=== PATIENT | female | born 2000 | race African-American/Black ===

== ENCOUNTER 2021-04-29 08:46 | Emergency (ER) | payer OTHER ==
--- OUTSIDE RECORDS SUMMARY | 2021-04-29 08:51 | XMS REPORT | Continuity of Care Document ---
:2000 Author Organization [facility] t Address [address] [place] [address] Care Team Providers Name Role Phone Asked, Pcp Primary Care Physician Unavailable UNKNOWN Attending Clinician Unavailable Jesu Attending Clinician Unavailable Kandice CHACKO Attending Clinician Maritza CHACKO, [place] Attending Clinician Suraj LLANES, J Attending Clinician Unavailable Rosalia STINSON Attending Clinician Unavailable Milad HERRERA, L Attending Clinician Petar GARCIAP Attending Clinician Aravind RUANO Attending Clinician Unavailable Marquita SMALL Attending Clinician Desiree HERRERA, B Attending Clinician 2, [facility] Room Attending Clinician Unavailable Ela Jim MD Attending Clinician Kevin SMALL Attending Clinician Physician, Primary or Family Admitting Clinician Unavailabl e Payers Payer Name Policy Type Policy Number Effective Date Expiration Date [facility] [id number] 2018 CHOICE MEDICAID 00:00:00 Advance Directives Directive Decision Effective Termination Comments Source Date Date Healthcare Agents on N/A Univ ersity FileNameRelationshipHealthcare of [place] Agent Medical RelationshipCommunicationTa[facility] WardAuntHealth Care [phone] (Mobile) Yuliya Hunt [facility] [phone] (Mobile) Problems Condition Condition Condition Status Onset Resolution Last Treating Co mments Source Name Details Category Date Date Treatment Clinician Date Depo-Prove Depo-Prove Disease Active 2020-0 U nivers ra ra 1-09 ity of contracept contracept 00:00: Isael dao praful status praful status 00 [place] , , Disease Active 2018-02 Univers delivered, delivered, 2-29 it y of current current 00:00: [place] hospitaliz hospitaliz 00 [facility] ation ation Branch Single Single Disease Active 2018-02 Univers liveborn liveborn 2-29 ity of infant infant 00:00: [address] Branch Placental Placental Disease Active 2019 Uni vers abruption abruption 2-20 ity of 00:00: [address] Susceptibl Susceptibl Disease Active 2019-0 U nivleyda e to e to 7-18 ity of Varicella Varicella 00:00: [place] s (non-immun (non-immun 00 Me dical e), e), Branch currently currently in first in first trimester trimester Supervisio Supervisio Disease Active 2019-0 U nivleyda n of high n of high 7-17 ity of risk risk 00:00: [place] 00 Medi bernadine in first in first Branch trimester trimester Nausea and Nausea and Disease Active 2019-0 U nivers vomiting vomiting 7-17 ity of in in 00:00: [place] 00 Medi bernadine prior to prior to Branch 22 weeks 22 weeks gestation gestation Abdominal Abdominal Disease Active 2019-0 Uni vers cramping cramping 7-17 ity of complicati complicati 00:00: [place] Medical Bran ch Previous Previous Disease Active 2019-0 Unive rs 7-17 ity of delivery delivery 00:00: [place] affecting affecting 00 Medi bernadine , , Br anch antepartum antepartum History of History of Disease Active 2019-0 U nivers depression depression 7-17 it y of 00:00: [place] 00 [facility] Branch Chlamydia Chlamydia Disease Active Uni vers trachomati trachomati 8-22 it y of s s 00:00: [place] infection infection 00 Medi bernadine of lower of lower Branch genitourin genitourin vandana sites vandana sites Vaginal Vaginal Disease Active Univers discharge discharge - ity of 00:00: [place] 00 Medical [place] Bacterial Bacterial Disease Active Uni vers vaginosis vaginosis - ity of 00:00: [place] 00 [facility] Allergies, Adverse Reactions, Alerts Allergy Allergy Status Severity Reaction(s) Onset Inactive Treating Comm ents Source Name Type Date Date Clinician No Known DA Active U [facility]ie - [place] s 00:00: d [address] [facility] No Known DA Active U [facility] Allergie 07-13 Clear s 00:00: [place] 00 [facility] NO KNOWN Drug Active Univers ALLERGIE Class ity of S [facility] [place] [facility] Social History Social Habit Start Date Stop Date Quantity Comments Source ASSERTION 2018-08-03 [place] of 00:00:00 [facility] [place] [facility] [place] [facility] Alcohol intake 2019-02-25 2019-02-25 Ex-drinker [facility] 00:00:00 00:00:00 (finding) [facility] [place] [facility] Tobacco use and 2019-02-25 2019-02-25 Never used Universit y of exposure 00:00:00 00:00:00 [facility] [place] [facility] Tobacco Comment 2018-09-02 2018-09-02 Marijuana use Univer sity of 00:00:00 00:00:00 [facility] [place] [facility] History of 2018-08-29 Smoker University of tobacco use 00:00:00 [facility] [place] [facility] Alcohol Comment 2018-03-26 2018-03-[address] 00:00:00 00:00:00 Hospital Smoking Status Start Date Stop Date Source Former smoker 2019-02-25 00:00:00 2019-02-25 00:00:00 [facility] smoker [facility] Medications Ordered Filled Start Stop Current Ordering Indication Dosage Frequency Signature Comments Components Source Medication Medication Date Date Medication? Clinician (SIG) Name Name doxycycline 2020- No 100mg Q.5D Take 1 Me thodi (VIBRAMYCIN 7-10 07-[address] ) 100 MG 00:00: 04:59 (100 mg Hospi ta capsule 00 :00 total) by l mouth 2 (two) times a day for 7 days. 2018-02 Yes [id number] 1{tbl} Take 1 Univers vitamin 2-29 tablet by ity of w/FA tablet 00:00: mouth [place] 00 daily. Medical Branch ferrous 2018-02 Yes [id number] 325mg Take 1 Un marshal sulfate 325 2-29 tablet by ity of mg (65 mg 00:00: mouth 2 [place] iron) 00 (two) Medical tablet times Branch daily. SERTraline 2018-02 Yes [id number] 50mg Take 1 Univers 50 mg 2-29 tablet by ity of tablet 00:00: mouth [place] 00 daily. Medical Branch 2018-02 Yes [id number] 1{tbl} Take 1 Univers vitamin 2-29 tablet by ity of w/FA tablet 00:00: mouth [place] 00 daily. Medical Branch ferrous 2018-02 Yes [id number] 325mg Take 1 Un marshal sulfate 325 2-29 tablet by ity of mg (65 mg 00:00: mouth 2 [place] iron) 00 (two) Medical tablet times Branch daily. SERTraline 2018-02 Yes [id number] 50mg Take 1 Univers 50 mg 2-29 tablet by ity of tablet 00:00: mouth [place] 00 daily. Medical Branch 2018-02 Yes [id number] 1{tbl} Take 1 Univers vitamin 2-29 tablet by ity of w/FA tablet 00:00: mouth [place] 00 daily. Medical Branch ferrous 2018-02 Yes [id number] 325mg Take 1 Un marshal sulfate 325 2-29 tablet by ity of mg (65 mg 00:00: mouth 2 [place] iron) 00 (two) Medical tablet times Branch daily. SERTraline 2018-02 Yes [id number] 50mg Take 1 Univers 50 mg 2-29 tablet by ity of tablet 00:00: mouth [place] 00 daily. Medical Branch Yes [id number] 1{packe Take 1 Univers vit 8-21 t} Packet by ity of 33-iron-fol 00:00: mouth [place] ic-dha 00 daily. Medical (SELECT-OB Branch + DHA) 29 mg iron-1 mg -250 mg combo pack Yes [id number] 1{packe Take 1 Univers vit 8-21 t} Packet by ity of 33-iron-fol 00:00: mouth [place] ic-dha 00 daily. Medical (SELECT-OB Branch + DHA) 29 mg iron-1 mg -250 mg combo pack Yes [id number] 1{packe Take 1 Univers vit 7-17 t} Packet by ity of 33-iron-fol 00:00: mouth [place] ic-dha 00 daily. Medical (SELECT-OB Branch + DHA) 29 mg iron-1 mg -250 mg combo pack Yes [id number] 1{packe Take 1 Univers vit 7-17 t} Packet by ity of 33-iron-fol 00:00: mouth [place] ic-dha 00 daily. Medical (SELECT-OB Branch + DHA) 29 mg iron-1 mg -250 mg combo pack Yes [id number] 1{packe Take 1 Univers vit 7-17 t} Packet by ity of 33-iron-fol 00:00: mouth [place] ic-dha 00 daily. Medical (SELECT-OB Branch + DHA) 29 mg iron-1 mg -250 mg combo pack Yes [id number] 1{packe Take 1 Univers vit 7-17 t} Packet by ity of 33-iron-fol 00:00: mouth [place] ic-dha 00 daily. Medical (SELECT-OB Branch + DHA) 29 mg iron-1 mg -250 mg combo pack Yes [id number] 1{packe Take 1 Univers vit 7-17 t} Packet by ity of 33-iron-fol 00:00: mouth [place] ic-dha 00 daily. Medical (SELECT-OB Branch + DHA) 29 mg iron-1 mg -250 mg combo pack 2019- No [id number] 1{packe Take 1 Univers vit 7-17 08-21 t} Packet by ity of 33-iron-fol 00:00: 00:[place] :00 daily. Medical (SELECT-OB Branch + DHA) 29 mg iron-1 mg -250 mg combo pack proMETHazin Yes [id number] 25mg Take 1 Univers e 25 mg 7-15 tablet by ity of tablet 00:00: mouth [place] 00 every 6 Medical (six) Branch hours as needed for Nausea and Vomiting (N/V). proMETHazin Yes [id number] 25mg Take 1 Univers e 25 mg 7-15 tablet by ity of tablet 00:00: mouth [place] 00 every 6 Medical (six) Branch hours as needed for Nausea and Vomiting (N/V). proMETHazin Yes [id number] 25mg Take 1 Univers e 25 mg 7-15 tablet by ity of tablet 00:00: mouth [place] 00 every 6 Medical (six) Branch hours as needed for Nausea and Vomiting (N/V). proMETHazin 2018- Yes [id number] 25mg Take 1 Univers e 25 mg 7-15 tablet by ity of tablet 00:00: mouth [place] 00 every 6 Medical (six) Branch hours as needed for Nausea and Vomiting (N/V). proMETHazin Yes [id number] 25mg Take 1 Univers e 25 mg 7-15 tablet by ity of tablet 00:00: mouth [place] 00 every 6 Medical (six) Branch hours as needed for Nausea and Vomiting (N/V). proMETHazin Yes [id number] 25mg Take 1 Univers e 25 mg 7-15 tablet by ity of tablet 00:00: mouth [place] 00 every 6 Medical (six) Branch hours as needed for Nausea and Vomiting (N/V). proMETHazin Yes [id number] 25mg Take 1 Univers e 25 mg 7-15 tablet by ity of tablet 00:00: mouth [place] 00 every 6 Medical (six) Branch hours as needed for Nausea and Vomiting (N/V). azithromyci 2017- Yes [id number] 1000mg Take 2 Univers n 500 mg 8-30 tablets by ity o f tablet 00:00: mouth [place] 00 daily. Medical Branch azithromyci 2017-0 Yes [id number] 1000mg Take 2 Univers n 500 mg 8-30 tablets by ity o f tablet 00:00: mouth [place] 00 daily. Medical Branch azithromyci 2017-0 Yes [id number] 1000mg Take 2 Univers n 500 mg 8-30 tablets by ity o f tablet 00:00: mouth [place] 00 daily. Medical Branch azithromyci 2017- Yes [id number] 1000mg Take 2 Univers n 500 mg 8-30 tablets by ity o f tablet 00:00: mouth [place] 00 daily. Medical Branch azithromyci Yes [id number] 1000mg Take 2 Univers n 500 mg 8-30 tablets by ity o f tablet 00:00: mouth [place] 00 daily. Medical Branch azithromyci 2018-0 Yes [id number] 1000mg Take 2 Univers n 500 mg 8-30 tablets by ity o f tablet 00:00: mouth [place] 00 daily. Medical Branch azithromyci 2018-0 Yes [id number] 1000mg Take 2 Univers n 500 mg 8-30 tablets by ity o f tablet 00:00: mouth [place] 00 daily. [facility] Immunizations Ordered Immunization Filled Immunization Date Status Commen ts Source Name Name HPV9 2019-02-14 Completed University of 00:00:00 [facility] [place] [facility] HPV9 2019-02-14 Completed University of 00:00:00 [facility] [place] [facility] HPV9 2019-02-14 Completed University of 00:00:00 [facility] [place] [facility] TDAP (ADACEL) VACCINE 2019-02-08 Completed Uni versity of 00:00:00 [facility] [place] [facility] Influenza Virus 2019-02-08 Completed Universit y of Vaccine Quad .5 mL IM 00:00:00 [place] as Medical 6+ MO Branch TDAP (ADACEL) VACCINE 2019-02-08 Completed Uni versity of 00:00:00 [facility] [place] [facility] Influenza Virus 2019-02-08 Completed Universit y of Vaccine Quad .5 mL IM 00:00:00 [place] Medical 6+ MO Branch TDAP (ADACEL) VACCINE 2019-02-08 Completed Uni versity of 00:00:00 [facility] [place] [facility] Influenza Virus 2019-02-08 Completed Universit y of Vaccine Quad .5 mL IM 00:00:00 [place] as Medical 6+ MO Branch HPV9 2015-06-15 Completed University of 00:00:00 [facility] [place] [facility] HPV9 2015-06-15 Completed University of 00:00:00 [facility] [place] [facility] HPV9 2015-06-15 Completed University of 00:00:00 [facility] [place] [facility] HPV9 2015-06-15 Completed University of 00:00:00 [facility] [place] [facility] HPV9 2015-06-15 Completed University of 00:00:00 [facility] [place] [facility] HPV9 2015-06-15 Completed University of 00:00:00 [facility] [place] [facility] HPV9 2015-06-15 Completed University of 00:00:00 [facility] [place] [facility] HPV9 2015-06-15 Completed University of 00:00:00 [facility] [place] [facility] HPV9 2015-06-15 Completed University of 00:00:00 [facility] [place] [facility] HPV9 2015-06-15 Completed University of 00:00:00 [facility] [place] [facility] Meningococcal 2015-03-15 Completed University of Polysaccharide 00:00:00 [place] Medi bernadine (groups A, C, Y and Branc h W-135) conjugate vaccine (MCV4P) Influenza Virus 2015-03-15 Completed Universit y of Vaccine Quad IM 3+ 00:00:00 [facility] HPV9 2015-03-15 Completed University of 00:00:00 [facility] [place] [facility] Meningococcal 2015-03-15 Completed University of Polysaccharide 00:00:00 [place] Medi bernadine (groups A, C, Y and Branc h W-135) conjugate vaccine (MCV4P) Influenza Virus 2015-03-15 Completed Universit y of Vaccine Quad IM 3+ 00:00:00 [facility] HPV9 2015-03-15 Completed University of 00:00:00 [facility] [place] [facility] Meningococcal 2015-03-15 Completed University of Polysaccharide 00:00:00 [place] Medi bernadine (groups A, C, Y and Branc h W-135) conjugate vaccine (MCV4P) Influenza Virus 2015-03-15 Completed Universit y of Vaccine Quad IM 3+ 00:00:00 [facility] HPV9 2015-03-15 Completed University of 00:00:00 [facility] [place] [facility] Meningococcal 2015-03-15 Completed University of Polysaccharide 00:00:00 [place] Medi bernadine (groups A, C, Y and Branc h W-135) conjugate vaccine (MCV4P) Influenza Virus 2015-03-15 Completed Universit y of Vaccine Quad IM 3+ 00:00:00 [facility] HPV9 2015-03-15 Completed University of 00:00:00 [facility] [place] [facility] Meningococcal 2015-03-15 Completed University of Polysaccharide 00:00:00 [place] Medi bernadine (groups A, C, Y and Branc h W-135) conjugate vaccine (MCV4P) Influenza Virus 2015-03-15 Completed Universit y of Vaccine Quad IM 3+ 00:00:00 [facility] HPV9 2015-03-15 Completed University of 00:00:00 [facility] [place] [facility] Meningococcal 2015-03-15 Completed University of Polysaccharide 00:00:00 [place] Medi bernadine (groups A, C, Y and Branc h W-135) conjugate vaccine (MCV4P) Influenza Virus 2015-03-15 Completed Universit y of Vaccine Quad IM 3+ 00:00:00 [facility] Branch HPV9 2015-03-15 Completed University of 00:00:00 [facility] [place] [facility] Meningococcal 2015-03-15 Completed University of Polysaccharide 00:00:00 [place] Medi bernadine (groups A, C, Y and Branc h W-135) conjugate vaccine (MCV4P) Influenza Virus 2015-03-15 Completed Universit y of Vaccine Quad IM 3+ 00:00:00 [facility] Branch HPV9 2015-03-15 Completed University of 00:00:00 [facility] [place] [facility] Meningococcal 2015-03-15 Completed University of Polysaccharide 00:00:00 [place] Medi bernadine (groups A, C, Y and Branc h W-135) conjugate vaccine (MCV4P) Influenza Virus 2015-03-15 Completed Universit y of Vaccine Quad IM 3+ 00:00:00 [facility] Branch HPV9 2015-03-15 Completed University of 00:00:00 [facility] [place] [facility] Meningococcal 2015-03-15 Completed University of Polysaccharide 00:00:00 [place] Medi bernadine (groups A, C, Y and Branc h W-135) conjugate vaccine (MCV4P) Influenza Virus 2015-03-15 Completed Universit y of Vaccine Quad IM 3+ 00:00:00 [facility] Branch HPV9 2015-03-15 Completed University of 00:00:00 [facility] [place] [facility] Meningococcal 2015-03-15 Completed University of Polysaccharide 00:00:00 [place] Medi bernadine (groups A, C, Y and Branc h W-135) conjugate vaccine (MCV4P) Influenza Virus 2015-03-15 Completed Universit y of Vaccine Quad IM 3+ 00:00:00 [facility] Branch HPV9 2015-03-15 Completed University of 00:00:00 [facility] [place] [facility] HPV 2014-08-18 Completed University of 00:00:00 [facility] Branch HPV 2014-08-18 Completed University of 00:00:00 [facility] Branch HPV 2014-08-18 Completed University of 00:00:00 [facility] Branch HPV 2014-08-18 Completed University of 00:00:00 [facility] Branch HPV 2014-08-18 Completed University of 00:00:00 [facility] Branch HPV 2014-08-18 Completed University of 00:00:00 [facility] Branch HPV 2014-08-18 Completed University of 00:00:00 [facility] Branch HPV 2014-08-18 Completed University of 00:00:00 [facility] [place] [facility] HPV 2014-08-18 Completed University of 00:00:00 [facility] [place] [facility] HPV 2014-08-18 Completed University of 00:00:00 [facility] [place] [facility] Influenza Virus 2012-12-23 Completed Universit y of Vaccine 00:00:00 [facility] [place] [facility] Influenza Virus 2012-12-23 Completed Universit y of Vaccine 00:00:00 [facility] [place] [facility] Influenza Virus 2012-12-23 Completed Universit y of Vaccine 00:00:00 [facility] [place] [facility] Influenza Virus 2012-12-23 Completed Universit y of Vaccine 00:00:00 [facility] [place] [facility] Influenza Virus 2012-12-23 Completed Universit y of Vaccine 00:00:00 [facility] [place] [facility] Influenza Virus 2012-12-23 Completed Universit y of Vaccine 00:00:00 [facility] [place] [facility] Influenza Virus 2012-12-23 Completed Universit y of Vaccine 00:00:00 [facility] [place] [facility] Influenza Virus 2012-12-23 Completed Universit y of Vaccine 00:00:00 [facility] [place] [facility] Influenza Virus 2012-12-23 Completed Universit y of Vaccine 00:00:00 [facility] [place] [facility] Influenza Virus 2012-12-23 Completed Universit y of Vaccine 00:00:00 [facility] [place] [facility] Influenza Virus 2012-03-02 Completed Universit y of Vaccine 00:00:00 [facility] [place] [facility] Influenza Virus 2012-03-02 Completed Universit y of Vaccine 00:00:00 [facility] [place] [facility] Influenza Virus 2012-03-02 Completed Universit y of Vaccine 00:00:00 [facility] [place] [facility] Influenza Virus 2012-03-02 Completed Universit y of Vaccine 00:00:00 [facility] [place] [facility] Influenza Virus 2012-03-02 Completed Universit y of Vaccine 00:00:00 [facility] [place] [facility] Influenza Virus 2012-03-02 Completed Universit y of Vaccine 00:00:00 [facility] [place] [facility] Influenza Virus 2012-03-02 Completed Universit y of Vaccine 00:00:00 [facility] [place] [facility] Influenza Virus 2012-03-02 Completed Universit y of Vaccine 00:00:00 [facility] [place] [facility] Influenza Virus 2012-03-02 Completed Universit y of Vaccine 00:00:00 [facility] [place] [facility] Influenza Virus 2012-03-02 Completed Universit y of Vaccine 00:00:00 [facility] [place] [facility] Tdap 2010-05-04 Completed University of 00:00:00 [facility] [place] [facility] Meningococcal Vaccine 2010-05-04 Completed Uni versity of 00:00:00 [place] [facility] Tdap 2010-05-04 Completed University of 00:00:00 [place] [facility] Meningococcal Vaccine 2010-05-04 Completed Uni versity of 00:00:00 [place] [facility] Tdap 2010-05-04 Completed University of 00:00:00 [place] [facility] Meningococcal Vaccine 2010-05-04 Completed Uni versity of 00:00:00 [place] [facility] Tdap 2010-05-04 Completed University of 00:00:00 [place] [facility] Meningococcal Vaccine 2010-05-04 Completed Uni versity of 00:00:00 [place] [facility] Tdap 2010-05-04 Completed University of 00:00:00 [place] [facility] Meningococcal Vaccine 2010-05-04 Completed Uni versity of 00:00:00 [place] [facility] Tdap 2010-05-04 Completed University of 00:00:00 [place] [facility] Meningococcal Vaccine 2010-05-04 Completed Uni versity of 00:00:00 [place] [facility] Tdap 2010-05-04 Completed University of 00:00:00 [place] [facility] Meningococcal Vaccine 2010-05-04 Completed Uni versity of 00:00:00 [place] [facility] TDAP 2010-05-04 Completed University of 00:00:00 [place] [facility] Meningococcal Vaccine 2010-05-04 Completed Uni versity of 00:00:00 [place] [facility] Tdap 2010-05-04 Completed University of 00:00:00 [place] [facility] Meningococcal Vaccine 2010-05-04 Completed Uni versity of 00:00:00 [place] [facility] Tdap 2010-05-04 Completed University of 00:00:00 [place] [facility] Meningococcal Vaccine 2010-05-04 Completed Uni versity of 00:00:00 [facility] Branch H1n1 Vaccine 2009-03-20 Completed University o f 00:00:00 [place] [facility] H1n1 Vaccine 2009-03-20 Completed University o f 00:00:00 [place] [facility] H1n1 Vaccine 2009-03-20 Completed University o f 00:00:00 [place] [facility] H1n1 Vaccine 2009-03-20 Completed University o f 00:00:00 [place] [facility] H1n1 Vaccine 2009-03-20 Completed University o f 00:00:00 [place] [facility] H1n1 Vaccine 2009-03-20 Completed University o f 00:00:00 [place] [facility] H1n1 Vaccine 2009-03-20 Completed University o f 00:00:00 [place] [facility] H1n1 Vaccine 2009-03-20 Completed University o f 00:00:00 [facility] [place] [facility] H1n1 Vaccine 2009-03-20 Completed University o f 00:00:00 [facility] [place] [facility] H1n1 Vaccine 2009-03-20 Completed University o f 00:00:00 [facility] [place] [facility] Influenza Virus 2009-03-17 Completed Universit y of Vaccine 00:00:00 [facility] [place] [facility] Varicella 2009-03-17 Completed University of (varivax)(chicken 00:00:00 [place] M edical pox) Branch Influenza Virus 2009-03-17 Completed Universit y of Vaccine 00:00:00 [facility] [place] [facility] Varicella 2009-03-17 Completed University of (varivax)(chicken 00:00:00 [place] M edical pox) Branch Influenza Virus 2009-03-17 Completed Universit y of Vaccine 00:00:00 [facility] [place] [facility] Varicella 2009-03-17 Completed University of (varivax)(chicken 00:00:00 [place] M edical pox) Branch Influenza Virus 2009-03-17 Completed Universit y of Vaccine 00:00:00 [facility] [place] [facility] Varicella 2009-03-17 Completed University of (varivax)(chicken 00:00:00 [place] M edical pox) Branch Influenza Virus 2009-03-17 Completed Universit y of Vaccine 00:00:00 [facility] [place] [facility] Varicella 2009-03-17 Completed University of (varivax)(chicken 00:00:00 [place] M edical pox) Branch Influenza Virus 2009-03-17 Completed Universit y of Vaccine 00:00:00 [facility] [place] [facility] Varicella 2009-03-17 Completed University of (varivax)(chicken 00:00:00 [place] M edical pox) Branch Influenza Virus 2009-03-17 Completed Universit y of Vaccine 00:00:00 [facility] [place] [facility] Varicella 2009-03-17 Completed University of (varivax)(chicken 00:00:00 [place] M edical pox) Branch Influenza Virus 2009-03-17 Completed Universit y of Vaccine 00:00:00 [facility] [place] [facility] Influenza Virus 2009-03-17 Completed Universit y of Vaccine 00:00:00 [facility] [place] [facility] Varicella 2009-03-17 Completed University of (varivax)(chicken 00:00:00 [place] M edical pox) Branch Varicella 2009-03-17 Completed University of (varivax)(chicken 00:00:00 [place] M edical pox) Branch Influenza Virus 2009-03-17 Completed Universit y of Vaccine 00:00:00 [facility] [place] [facility] Varicella 2009-03-17 Completed University of (varivax)(chicken 00:00:00 [facility] edical pox) [place] Influenza Virus 2005-01-08 Completed Universit y of Vaccine 00:00:00 [facility] [place] [facility] Influenza Virus 2005-01-08 Completed Universit y of Vaccine 00:00:00 [facility] [place] [facility] Influenza Virus 2005-01-08 Completed Universit y of Vaccine 00:00:00 [facility] [place] [facility] [facility] Influenza Virus 2005-01-08 Completed [facility] Vaccine 00:00:00 [facility] Influenza Virus 2005-01-08 Completed [facility] Vaccine 00:00:00 [facility] Influenza Virus 2005-01-08 Completed [facility] Vaccine 00:00:00 [facility] Influenza Virus 2005-01-08 Completed [facility] Vaccine 00:00:00 [facility] Influenza Virus 2005-01-08 Completed [facility] Vaccine 00:00:00 [facility] Influenza Virus 2005-01-08 Completed [facility] Vaccine 00:00:00 [facility] Influenza Virus 2005-01-08 Completed [facility] Vaccine 00:00:00 [facility] DTAP 2002-12-30 Completed [facility] 00:00:00 [facility] Influenza Virus 2002-12-30 Completed [facility] Vaccine 00:00:00 [facility] MMR 2002-12-30 Completed [facility] 00:00:00 [facility] Polio (IPV/OPV) 2002-12-30 Completed [facility] 00:00:00 [facility] DTAP 2002-12-30 Completed [facility] 00:00:00 [facility] Influenza Virus 2002-12-30 Completed [facility] Vaccine 00:00:00 [facility] MMR 2002-12-30 Completed [facility] 00:00:00 [facility] Polio (IPV/OPV) 2002-12-30 Completed [facility] 00:00:00 [facility] DTAP 2002-12-30 Completed [facility] 00:00:00 [facility] Influenza Virus 2002-12-30 Completed [facility] Vaccine 00:00:00 [facility] MMR 2002-12-30 Completed [facility] 00:00:00 [facility] Polio (IPV/OPV) 2002-12-30 Completed [facility] 00:00:00 [facility] DTAP 2002-12-30 Completed [facility] 00:00:00 [facility] Influenza Virus 2002-12-30 Completed [facility] Vaccine 00:00:00 [facility] MMR 2002-12-30 Completed [facility] 00:00:00 [facility] Polio (IPV/OPV) 2002-12-30 Completed [facility] 00:00:00 [facility] DTAP 2002-12-30 Completed [facility] 00:00:00 [facility] Influenza Virus 2002-12-30 Completed [facility] Vaccine 00:00:00 [facility] MMR 2002-12-30 Completed [facility] 00:00:00 [facility] Polio (IPV/OPV) 2002-12-30 Completed [facility] 00:00:00 [facility] DTAP 2002-12-30 Completed [facility] 00:00:00 [facility] Influenza Virus 2002-12-30 Completed [facility] Vaccine 00:00:00 [facility] MMR 2002-12-30 Completed [facility] 00:00:00 [facility] Polio (IPV/OPV) 2002-12-30 Completed [facility] 00:00:00 [facility] DTAP 2002-12-30 Completed [facility] 00:00:00 [facility] DTAP 2002-12-30 Completed [facility] 00:00:00 [facility] Influenza Virus 2002-12-30 Completed [facility] Vaccine 00:00:00 [facility] MMR 2002-12-30 Completed [facility] 00:00:00 [facility] Polio (IPV/OPV) 2002-12-30 Completed [facility] 00:00:00 [facility] Influenza Virus 2002-12-30 Completed [facility] Vaccine 00:00:00 [facility] MMR 2002-12-30 Completed [facility] 00:00:00 [facility] Polio (IPV/OPV) 2002-12-30 Completed [facility] 00:00:00 [facility] DTAP 2002-12-30 Completed [facility] 00:00:00 [facility] Influenza Virus 2002-12-30 Completed [facility] Vaccine 00:00:00 [facility] MMR 2002-12-30 Completed [facility] 00:00:00 [facility] Polio (IPV/OPV) 2002-12-30 Completed [facility] 00:00:00 [facility] DTAP 2002-12-30 Completed [facility] 00:00:00 [facility] Influenza Virus 2002-12-30 Completed [facility] Vaccine 00:00:00 [facility] MMR 2002-12-30 Completed [facility] 00:00:00 [facility] Polio (IPV/OPV) 2002-12-30 Completed [facility] 00:00:00 [facility] HEPATITIS A 2001-12-03 Completed [facility] 00:00:00 [facility] HEPATITIS A 2001-12-03 Completed [facility] 00:00:00 [facility] HEPATITIS A 2001-12-03 Completed [facility] 00:00:00 [facility] HEPATITIS A 2001-12-03 Completed [facility] 00:00:00 [facility] HEPATITIS A 2001-12-03 Completed [facility] 00:00:00 [facility] HEPATITIS A 2001-12-03 Completed [facility] 00:00:00 [facility] HEPATITIS A 2001-12-03 Completed [facility] 00:00:00 [facility] HEPATITIS A 2001-12-03 Completed [facility] 00:00:00 [facility] HEPATITIS A 2001-12-03 Completed [facility] 00:00:00 [facility] HEPATITIS A 2001-12-03 Completed [facility] 00:00:00 [facility] HEPATITIS A 2000-12-15 Completed [facility] 00:00:00 [facility] Hep B, Adol or Pedi 2000-12-15 Completed [facility] of Dosage 00:00:00 [facility] HEPATITIS A 2000-12-15 Completed [facility] 00:00:00 [facility] Hep B, Adol or Pedi 2000-12-15 Completed [facility] of Dosage 00:00:00 [facility] HEPATITIS A 2000-12-15 Completed [facility] 00:00:00 [facility] Hep B, Adol or Pedi 2000-12-15 Completed [facility] of Dosage 00:00:00 [facility] HEPATITIS A 2000-12-15 Completed [facility] 00:00:00 [facility] Hep B, Adol or Pedi 2000-12-15 Completed [facility] of Dosage 00:00:00 [facility] HEPATITIS A 2000-12-15 Completed [facility] 00:00:00 [facility] Hep B, Adol or Pedi 2000-12-15 Completed [facility] of Dosage 00:00:00 [facility] HEPATITIS A 2000-12-15 Completed [facility] 00:00:00 [facility] Hep B, Adol or Pedi 2000-12-15 Completed [facility] of Dosage 00:00:00 [facility] HEPATITIS A 2000-12-15 Completed [facility] 00:00:00 [facility] Hep B, Adol or Pedi 2000-12-15 Completed [facility] of Dosage 00:00:00 [facility] HEPATITIS A 2000-12-15 Completed [facility] 00:00:00 [facility] Hep B, Adol or Pedi 2000-12-15 Completed [facility] of Dosage 00:00:00 [facility] HEPATITIS A 2000-12-15 Completed [facility] 00:00:00 [facility] Hep B, Adol or Pedi 2000-12-15 Completed [facility] of Dosage 00:00:00 [facility] HEPATITIS A 2000-12-15 Completed [facility] 00:00:00 [facility] Hep B, Adol or Pedi 2000-12-15 Completed [facility] of Dosage 00:00:00 [facility] Hep B, Adol or Pedi 2000-05-29 Completed [facility] rs[facility] of Dosage 00:00:00 [facility] Pneumococcal 7 2000-05-29 Completed [facility] of Conjugate, PCV7 00:00:00 [facility] DTAP 2000-05-29 Completed [facility] 00:00:00 [facility] Hep B, Adol or Pedi 2000-05-29 Completed [facility] rs[facility] of Dosage 00:00:00 [facility] Pneumococcal 7 2000-05-29 Completed [facility] Conjugate, PCV7 00:00:00 [facility] DTAP 2000-05-29 Completed [facility] 00:00:00 [facility] Hep B, Adol or Pedi 2000-05-29 Completed [facility] rs[facility] of Dosage 00:00:00 [facility] Pneumococcal 7 2000-05-29 Completed [facility] Conjugate, PCV7 00:00:00 [facility] (Pre[facility]ar[facility] DTAP 2000-05-29 Completed [facility] 00:00:00 [facility] Hep B, Adol or Pedi 2000-05-29 Completed [facility] rs[facility] of Dosage 00:00:00 [facility] Hep B, Adol or Pedi 2000-05-29 Completed [facility] rs[facility] of Dosage 00:00:00 [facility] Pneumococcal 7 2000-05-29 Completed [facility] Conjugate, PCV7 00:00:00 [facility] DTAP 2000-05-29 Completed [facility] 00:00:00 [facility] Pneumococcal 7 2000-05-29 Completed [facility] Conjugate, PCV7 00:00:00 [facility]ar[facility] Hep B, Adol or Pedi 2000-05-29 Completed [facility] rs[facility] of Dosage 00:00:00 [facility] Pneumococcal 7 2000-05-29 Completed [facility] Conjugate, PCV7 00:00:00 [facility] DTAP 2000-05-29 Completed [facility] 00:00:00 [facility] DTAP 2000-05-29 Completed [facility] 00:00:00 [facility] Hep B, Adol or Pedi 2000-05-29 Completed [facility] rs[facility] of Dosage 00:00:00 [facility] Pneumococcal 7 2000-05-29 Completed [facility] Conjugate, PCV7 00:00:00 [facility]Pre[facility]ar[facility] DTAP 2000-05-29 Completed [facility] 00:00:00 [facility] Hep B, Adol or Pedi 2000-05-29 Completed [facility] rs[facility] of Dosage 00:00:00 [facility] Pneumococcal 7 2000-05-29 Completed [facility] Conjugate, PCV7 00:00:00 [facility]ar[facility] DTAP 2000-05-29 Completed [facility] 00:00:00 [facility] Hep B, Adol or Pedi 2000-05-29 Completed [facility]ive rs[facility] of Dosage 00:00:00 [facility] Pneumococcal 7 2000-05-29 Completed [facility] Conjugate, PCV7 00:00:00 [facility]ar[facility] DTAP 2000-05-29 Completed [facility] 00:00:00 [facility] Hep B, Adol or Pedi 2000-05-29 Completed [facility] rs[facility] of Dosage 00:00:00 [facility] Pneumococcal 7 2000-05-29 Completed [facility] Conjugate, PCV7 00:00:00 [facility]ar[facility] DTAP 2000-05-29 Completed [facility] 00:00:00 [facility] MMR 2000-04-08 Completed [facility] 00:00:00 [facility] Pneumococcal 7 2000-04-08 Completed [facility] Conjugate, PCV7 00:00:00 [facility]ar[facility] Varicella 2000-04-08 Completed [facility] (varivax)(chicken 00:00:00 [facility] pox) [facility] HIB 4 Dose Schedule 2000-04-08 Completed [facility]ive rsity of 00:00:00 [facility] MMR 2000-04-08 Completed [facility] 00:00:00 [facility] Pneumococcal 7 2000-04-08 Completed [facility] Conjugate, PCV7 00:00:00 [facility]Pre[facility]ar[facility] Varicella 2000-04-08 Completed [facility] (varivax)(chicken 00:00:00 [facility] pox) [facility] HIB 4 Dose Schedule 2000-04-08 Completed [facility] rs[facility] of 00:00:00 [facility] MMR 2000-04-08 Completed [facility] 00:00:00 [facility] Pneumococcal 7 2000-04-08 Completed [facility] Conjugate, PCV7 00:00:00 [facility]Pre[facility]ar[facility] Varicella 2000-04-08 Completed [facility] (varivax)(chicken 00:00:00 [facility] pox) [facility] HIB 4 Dose Schedule 2000-04-08 Completed [facility] rsity of 00:00:00 [facility] MMR 2000-04-08 Completed [facility] 00:00:00 [facility] MMR 2000-04-08 Completed [facility] 00:00:00 [facility] Pneumococcal 7 2000-04-08 Completed [facility] Conjugate, PCV7 00:00:00 [facility]ar[facility] Varicella 2000-04-08 Completed [facility] (varivax)(chicken 00:00:00 [facility] pox) [facility] Pneumococcal 7 2000-04-08 Completed [facility] Conjugate, PCV7 00:00:00 [facility] (Prevnar7) [facility] HIB 4 Dose Schedule 2000-04-08 Completed [facility] rsity of 00:00:00 [facility] Varicella 2000-04-08 Completed [facility] (varivax)(chicken 00:00:00 [facility] pox) [facility] MMR 2000-04-08 Completed [facility] 00:00:00 [facility] Pneumococcal 7 2000-04-08 Completed [facility] Conjugate, PCV7 00:00:00 [facility]ar[facility] Varicella 2000-04-08 Completed [facility] (varivax)(chicken 00:00:00 [facility] pox) [facility] HIB 4 Dose Schedule 2000-04-08 Completed [facility] rsity of 00:00:00 [facility] MMR 2000-04-08 Completed [facility] 00:00:00 [facility] Pneumococcal 7 2000-04-08 Completed [facility] Conjugate, PCV7 00:00:00 [facility]ar[facility] Varicella 2000-04-08 Completed [facility] (varivax)(chicken 00:00:00 [facility] pox) [facility] HIB 4 Dose Schedule 2000-04-08 Completed [facility] rs[facility] of 00:00:00 [facility] HIB 4 Dose Schedule 2000-04-08 Completed [facility] rsity of 00:00:00 [facility] MMR 2000-04-08 Completed [facility] 00:00:00 [facility] Pneumococcal 7 2000-04-08 Completed [facility] Conjugate, PCV7 00:00:00 [facility]ar[facility] Varicella 2000-04-08 Completed [facility] (varivax)(chicken 00:00:00 [facility] edical pox) Branch HIB 4 Dose Schedule 2000-04-08 Completed [facility]ive rsity of 00:00:00 [facility] MMR 2000-04-08 Completed [facility] 00:00:00 [facility] Pneumococcal 7 2000-04-08 Completed [facility] Conjugate, PCV7 00:00:00 [facility]ar[facility] Varicella 2000-04-08 Completed [facility] (varivax)(chicken 00:00:00 [facility] edical pox) Branch HIB 4 Dose Schedule 2000-04-08 Completed [facility] rsity of 00:00:00 [facility] MMR 2000-04-08 Completed [facility] 00:00:00 [facility] Pneumococcal 7 2000-04-08 Completed [facility] Conjugate, PCV7 00:00:00 [facility]ar[facility] Varicella 2000-04-08 Completed [facility] (varivax)(chicken 00:00:00 [facility] pox) [facility] HIB 4 Dose Schedule 2000-04-08 Completed [facility] rsity of 00:00:00 [facility] Hep B, Adol or Pedi 1999-06-26 Completed [facility]ive rsity of Dosage 00:00:00 [facility] DTAP 1999-06-26 Completed [facility] 00:00:00 [facility] HIB 4 Dose Schedule 1999-06-26 Completed [facility]ive rsity of 00:00:00 [facility] Polio (IPV/OPV) 1999-06-26 Completed [facility] 00:00:00 [facility] Hep B, Adol or Pedi 1999-06-26 Completed [facility]ive rsity of Dosage 00:00:00 [facility] DTAP 1999-06-26 Completed [facility] 00:00:00 [facility] HIB 4 Dose Schedule 1999-06-26 Completed [facility] rsity of 00:00:00 [facility] Polio (IPV/OPV) 1999-06-26 Completed [facility] 00:00:00 [facility] Hep B, Adol or Pedi 1999-06-26 Completed [facility]ive rsity of Dosage 00:00:00 [facility] DTAP 1999-06-26 Completed [facility] 00:00:00 [facility] HIB 4 Dose Schedule 1999-06-26 Completed [facility] rs[facility] of 00:00:00 [facility] Hep B, Adol or Pedi 1999-06-26 Completed [facility] rs[facility] of Dosage 00:00:00 [facility] Polio (IPV/OPV) 1999-06-26 Completed [facility] 00:00:00 [facility] Hep B, Adol or Pedi 1999-06-26 Completed [facility] rsity of Dosage 00:00:00 [facility] DTAP 1999-06-26 Completed [facility] 00:00:00 [facility] HIB 4 Dose Schedule 1999-06-26 Completed [facility] rsity of 00:00:00 [facility] Polio (IPV/OPV) 1999-06-26 Completed [facility] 00:00:00 [facility] Hep B, Adol or Pedi 1999-06-26 Completed [facility] rsity of Dosage 00:00:00 [facility] DTAP 1999-06-26 Completed [facility] 00:00:00 [facility] DTAP 1999-06-26 Completed [facility] 00:00:00 [facility] HIB 4 Dose Schedule 1999-06-26 Completed [facility] rsity of 00:00:00 [facility] Polio (IPV/OPV) 1999-06-26 Completed [facility] 00:00:00 [facility] HIB 4 Dose Schedule 1999-06-26 Completed [facility] rs[facility] of 00:00:00 [facility] Hep B, Adol or Pedi 1999-06-26 Completed [facility] rsity of Dosage 00:00:00 [facility] DTAP 1999-06-26 Completed [facility] 00:00:00 [facility] HIB 4 Dose Schedule 1999-06-26 Completed [facility] rs[facility] of 00:00:00 [facility] Polio (IPV/OPV) 1999-06-26 Completed [facility] 00:00:00 [facility] Polio (IPV/OPV) 1999-06-26 Completed [facility] 00:00:00 [facility] Hep B, Adol or Pedi 1999-06-26 Completed [facility]ive rsity of Dosage 00:00:00 [facility] DTAP 1999-06-26 Completed [facility] 00:00:00 [facility] HIB 4 Dose Schedule 1999-06-26 Completed [facility] rs[facility] of 00:00:00 [facility] Polio (IPV/OPV) 1999-06-26 Completed [facility] 00:00:00 [facility] Hep B, Adol or Pedi 1999-06-26 Completed [facility] rsity of Dosage 00:00:00 [facility] DTAP 1999-06-26 Completed [facility] 00:00:00 [facility] HIB 4 Dose Schedule 1999-06-26 Completed [facility] of 00:00:00 [facility] Polio (IPV/OPV) 1999-06-26 Completed [facility] 00:00:00 [facility] Hep B, Adol or Pedi 1999-06-26 Completed [facility] rsity of Dosage 00:00:00 [facility] DTAP 1999-06-26 Completed [facility] 00:00:00 [facility] HIB 4 Dose Schedule 1999-06-26 Completed [facility] of 00:00:00 [facility] Polio (IPV/OPV) 1999-06-26 Completed [facility] 00:00:00 [facility] DTAP 1999-04-12 Completed [facility] 00:00:00 [facility] HIB 4 Dose Schedule 1999-04-12 Completed [facility] rsity of 00:00:00 [facility] Polio (IPV/OPV) 1999-04-12 Completed [facility] 00:00:00 [facility] DTAP 1999-04-12 Completed [facility] 00:00:00 [facility] HIB 4 Dose Schedule 1999-04-12 Completed [facility] of 00:00:00 [facility] Polio (IPV/OPV) 1999-04-12 Completed [facility] 00:00:00 [facility] DTAP 1999-04-12 Completed [facility] 00:00:00 [facility] HIB 4 Dose Schedule 1999-04-12 Completed [facility] of 00:00:00 [facility] Polio (IPV/OPV) 1999-04-12 Completed [facility] 00:00:00 [facility] DTAP 1999-04-12 Completed [facility] 00:00:00 [facility] HIB 4 Dose Schedule 1999-04-12 Completed [facility] of 00:00:00 [facility] Polio (IPV/OPV) 1999-04-12 Completed [facility] 00:00:00 [facility] DTAP 1999-04-12 Completed [facility] 00:00:00 [facility] DTAP 1999-04-12 Completed [facility] 00:00:00 [facility] HIB 4 Dose Schedule 1999-04-12 Completed [facility] of 00:00:00 [facility] Polio (IPV/OPV) 1999-04-12 Completed [facility] 00:00:00 [facility] HIB 4 Dose Schedule 1999-04-12 Completed [facility] of 00:00:00 [facility] DTAP 1999-04-12 Completed [facility] 00:00:00 [facility] HIB 4 Dose Schedule 1999-04-12 Completed [facility] of 00:00:00 [facility] Polio (IPV/OPV) 1999-04-12 Completed [facility] 00:00:00 [facility] Polio (IPV/OPV) 1999-04-12 Completed [facility] 00:00:00 [facility] DTAP 1999-04-12 Completed [facility] 00:00:00 [facility] HIB 4 Dose Schedule 1999-04-12 Completed [facility] 00:00:00 [facility] Polio (IPV/OPV) 1999-04-12 Completed [facility] 00:00:00 [facility] DTAP 1999-04-12 Completed [facility] 00:00:00 [facility] HIB 4 Dose Schedule 1999-04-12 Completed [facility] 00:00:00 [facility] Polio (IPV/OPV) 1999-04-12 Completed [facility] 00:00:00 [facility] DTAP 1999-04-12 Completed [facility] 00:00:00 [facility] HIB 4 Dose Schedule 1999-04-12 Completed [facility] of 00:00:00 [facility] Polio (IPV/OPV) 1999-04-12 Completed [facility] 00:00:00 [facility] DTAP 1999-02-02 Completed [facility] 00:00:00 [facility] HIB 4 Dose Schedule 1999-02-02 Completed [facility] of 00:00:00 [facility] Polio (IPV/OPV) 1999-02-02 Completed [facility] 00:00:00 [facility] DTAP 1999-02-02 Completed [facility] 00:00:00 [facility] HIB 4 Dose Schedule 1999-02-02 Completed [facility] of 00:00:00 [facility] Polio (IPV/OPV) 1999-02-02 Completed [facility] 00:00:00 [facility] DTAP 1999-02-02 Completed [facility] 00:00:00 [facility] HIB 4 Dose Schedule 1999-02-02 Completed [facility] 00:00:00 [facility] Polio (IPV/OPV) 1999-02-02 Completed [facility] 00:00:00 [facility] DTAP 1999-02-02 Completed [facility] 00:00:00 [facility] HIB 4 Dose Schedule 1999-02-02 Completed [facility] 00:00:00 [facility] Polio (IPV/OPV) 1999-02-02 Completed [facility] 00:00:00 [facility] DTAP 1999-02-02 Completed [facility] 00:00:00 [facility] DTAP 1999-02-02 Completed [facility] 00:00:00 [facility] HIB 4 Dose Schedule 1999-02-02 Completed [facility] 00:00:00 [facility] Polio (IPV/OPV) 1999-02-02 Completed [facility] 00:00:00 [facility] HIB 4 Dose Schedule 1999-02-02 Completed [facility] of 00:00:00 [facility] DTAP 1999-02-02 Completed University of 00:00:00 [facility] HIB 4 Dose Schedule 1999-02-02 Completed Unive rsity of 00:00:00 [facility] Polio (IPV/OPV) 1999-02-02 Completed Universit y of 00:00:00 [facility] Polio (IPV/OPV) 1999-02-02 Completed Universit y of 00:00:00 [facility] DTAP 1999-02-02 Completed University of 00:00:00 [facility] HIB 4 Dose Schedule 1999-02-02 Completed Unive rsity of 00:00:00 [facility] Polio (IPV/OPV) 1999-02-02 Completed Universit y of 00:00:00 [facility] DTAP 1999-02-02 Completed University of 00:00:00 [facility] HIB 4 Dose Schedule 1999-02-02 Completed Unive rsity of 00:00:00 [facility] Polio (IPV/OPV) 1999-02-02 Completed Universit y of 00:00:00 [facility] DTAP 1999-02-02 Completed University of 00:00:00 [facility] HIB 4 Dose Schedule 1999-02-02 Completed Unive rsity of 00:00:00 [facility] Polio (IPV/OPV) 1999-02-02 Completed Universit y of 00:00:00 [facility] Hep B, Adol or Pedi 2000 Completed Unive rsity of Dosage 00:00:00 [facility] Hep B, Adol or Pedi 2000 Completed Unive rsity of Dosage 00:00:00 [facility] Hep B, Adol or Pedi 1998 Completed Unive rsity of Dosage 00:00:00 [facility] Hep B, Adol or Pedi 1998 Completed Unive rsity of Dosage 00:00:00 [facility] Hep B, Adol or Pedi 1998 Completed Unive rsity of Dosage 00:00:00 [facility] Hep B, Adol or Pedi 1998 Completed Unive rsity of Dosage 00:00:00 [facility] Hep B, Adol or Pedi 1998 Completed Unive rsity of Dosage 00:00:00 [facility] Hep B, Adol or Pedi 1998 Completed Unive rsity of Dosage 00:00:00 [facility] Hep B, Adol or Pedi 1998 Completed Unive rsity of Dosage 00:00:00 [facility] Hep B, Adol or Pedi 1998 Completed Unive rsity of Dosage 00:00:00 [facility] Vital Signs Vital Name Observation Time Observation Value Comments Source Systolic blood 2018-10-07 20:50:00 102 mm[Hg] Univer sity of pressure [facility] Diastolic blood 2018-10-07 20:50:00 68 mm[Hg] Unive rsity of [facility] Heart rate 2018-10-07 20:50:00 79 /min [facility] Body temperature 2018-10-07 20:50:00 36.61 Martina [facility] rate 2018-10-07 20:50:00 18 /min [facility] Body weight 2018-10-07 20:50:00 56.881 kg [facility] Systolic blood 2018-10-07 20:50:00 102 mm[Hg] Univer sity of [facility] Diastolic blood 2018-10-07 20:50:00 68 mm[Hg] [facility] Heart rate 2018-10-07 20:50:00 79 /min [facility] Body temperature 2018-10-07 20:50:00 36.61 Amrtina [facility] Respiratory rate 2018-10-07 20:50:00 18 /min [facility] Body weight 2018-10-07 20:50:00 56.881 kg [facility] Body height 2020-08-26 13:09:[address] [facility] Body weight 2020-08-26 13:09:[address] [facility] BMI 2020-08-26 13:09:00 21.26 kg/m2 [facility] Systolic blood 2020-08-26 13:02:55 107 mm[Hg] [facility] pressure Diastolic blood 2020-08-26 13:02:55 66 mm[Hg] [facility] pressure Heart rate 2020-08-26 13:02:55 78 /min [facility] Body temperature 2020-08-26 13:02:55 37.11 Martina [facility] Respiratory rate 2020-08-26 13:02:55 16 /min [facility] Oxygen saturation in 2020-08-26 13:02:55 97 /min [facility] Arterial blood by Pulse oximetry Procedures Procedure Date / Time Performing Clinician Source Performed URINE CULTURE 2020-08-26 13:27:00 [facility] spital WET PREP 2020-08-26 13:24:00 [facility] spital CHLAMYDIA TRACHOMATIS, 2020-08-26 13:24:00 [facility] TMA NEISSERIA GONORRHOEAE, 2020-08-26 13:24:00 [facility] TMA TRICHOMONAS VAGINALIS, 2020-08-26 13:24:00 [facility] TMA URINALYSIS SCREEN AND 2020-08-26 13:13:00 [facility] MICROSCOPY, WITH REFLEX TO CULTURE HCG QUALITATIVE, URINE 2020-08-26 13:13:00 [facility] SCREEN URINE CULTURE 2020-06-28 00:35:00 [facility] LIPASE LEVEL 2020-06-28 00:35:00 [facility] COMPREHENSIVE METABOLIC 2020-06-28 00:35:00 [facility] PANEL HC COMPLETE BLD COUNT 2020-06-28 00:35:00 [facility] W/AUTO DIFF URINALYSIS SCREEN AND 2020-06-28 00:35:00 [facility] MICROSCOPY, WITH REFLEX TO CULTURE HCG QUALITATIVE, URINE 2020-06-28 00:35:00 [facility] SCREEN ESTIMATED GFR 2020-06-28 00:35:00 [facility] Plan of Care Planned Activity Planned Date Details Comments Source Future Scheduled Test COVID-19 VACCINE (1) [facility] [code = COVID-19 VACCINE (1)] Future Scheduled Test Hepatitis C screening [facility] (procedure) [code = 057534196] Future Scheduled Test Screening for [facility] malignant neoplasm of cervix (procedure) [code = 084152288] Future Scheduled Test INFLUENZA VACCINE [facility] [code = INFLUENZA VACCINE] Future Scheduled Test CHLAMYDIA SCREENING [facility] [code = CHLAMYDIA SCREENING] Encounters Start End Encounter Admission Attending Care Care Encounter Source Date/Time Date/Time Type Type Clinicians Facility Department ID 2019-09-11 Inpatient HCAMN MARISA [id number] [facility] 04:47:00 [id number] [facility] 2019-09-03 Inpatient HCAMN MARISA [id number] [facility] 16:03:00 [id number] [facility] 2021-03-04 2021-03-04 Outpatient R [facility] [id number] Univers 10:15:00 10:15:00 [id number] [facility] 2021-03-04 2021-03-04 Outpatient R UNKNOWN, [facility] [id number] Univers 10:15:00 10:15:00 [facility] 2020-10-21 2020-10-21 Emergency EM Jesu, HOWARDMN MARISA [id number] [facility] 16:01:00 18:39:00 Suchmor [id number] [facility] 2020-08-26 2020-08-26 Emergency LingDavid 1.2.840.1 [id number] Methodi 08:07:00 10:00:[address] 3.430.2.7 Hospit a .3.135169 l .8 2020-06-27 2020-06-27 Emergency Wingkun, 1.2.840.1 [id number] Methodi 19:16:00 20:58:[address] 3.430.2.7 Hospit a .3.832969 l .8 2020-06-27 2020-06-27 Travel 1.2.840.1 1.2.676.841 [id number] Methodi 00:00:00 00:00:[address] 3.430.2.7 0.2.7.3.698 Ho spita .3.380370 084.8 l .8 2019-10-06 2019-10-06 Patient TONG Ruelas 1.2.986.365 [id number] Univers 00:00:00 00:00:00 Outreach Mago BUN[facility].1.13.10 [facility] 4.2.7.2.686 Alejandro as [id number] [address] 2019-05-03 2019-05-03 Outpatient R MILAD [facility] [id number] Univers 15:00:00 15:00:00 MEKA [id number] ity o f [facility] 2019-05-03 2019-05-03 Telephone Milad [facility] 1.2.428.713 [id number] Univers 00:00:00 00:00:00 Meka Lindsey BLACK LEATHER TRIMMER 350.1.13.10 ity of [facility] 4.2.7.2.686 Alejandro as MATERNAL [phone] Med ical & CHILD [address] [place] [address] 2019-05-03 2019-05-03 Rangely Milad [facility] 1.2.504.130 [id number] 00:00:00 00:00:00 Meka Lindsey [employer] 350.1.13.10 REGIONAL 4.2.7.2.686 MATERNAL [id number] & CHILD [address] [place] [address] 2019-02-25 2019-02-25 Letter Petar [facility] 1.2.985.706 [id number] Univers 00:00:00 00:00:00 (Out) Marco Antonio BLACK LEATH[employer]IMMER 350.1.13.10 ity of [facility] 4.2.7.2.686 Alejandro as MATERNAL [id number] [facility] & CHILD [address] [place] [address] 2018-11-05 2018-11-05 TONG Philip 1.2.840.114 [id number] Univers 00:00:00 00:00:00 Triage Aneatrice JULIO C 350.1.13.10 ity of [facility] 4.2.7.2.686 Alejandro as [id number] [address] 2018-11-05 2018-11-05 TONG Philip 1.2.840.114 [id number] 16 00:00:00 00:00:00 Triage Aneatrice JULIO C 350.1.13.10 [facility] 4.2.7.2.686 [id number] [facility] 2018-10-07 2018-10-07 Routine Jane Juárez UNIVERSIT 1.2.840.114 7 [id number] Univers 15:22:00 16:10:08 Y HEALTH 350.1.13.10 ity of [place]ICS [place] [id number] [facility] [address] Branch 2018-10-07 2018-10-07 Routine Jane Juárez UNIVERSIT 1.2.840.114 7 [id number] 15:22:00 16:10:08 Y HEALTH 350.1.13.10 Visit CLINICS 4.2.7.2.686 [id number] [facility] 2018-10-01 2018-10-01 Letter Desiree, UNIVERSIT 1.2.588.857 [id number] Univers 00:00:00 00:00:00 (Out) Nya B Y HEALTH 350.1.13.10 i ty [place]ICS [place] [id number] [facility] [address] Branch 2018-10-01 2018-10-01 Letter Desiree, UNIVERSIT 1.2.506.998 [id number] 00:00:00 00:00:00 (Out) Nya B Y HEALTH 350.1.13.10 CLINICS 4.2.7.2.686 [id number] [facility] 2018-09-22 2018-09-22 [facility] 1.2.840.114 [id number] Univers 00:00:00 00:00:00 Meka Lindsey BL[employer] 350.1.13.10 ity of REGIONAL 4.2.7.2.686 Alejandro as MATERNAL [id number] Med ical & CHILD [address] [facility][1] 2018-09-22 2018-09-22 Abstract Milad [facility] 1.2.840.114 [id number] 00:00:00 00:00:00 Meka L [employer] 350.1.13.10 REGIONAL 4.2.7.2.686 MATERNAL [id number] & CHILD 130 [facility] 2018-09-21 2018-09-21 Risk Advisor 2, [facility] Us Room UNIVERSIT 1 .2.840.114 [id number] Univers 15:41:03 16:55:37 Visit Dominique Jim Y HEALTH 350.1.1 3.10 [place]y [place] [id number] [facility] 104 Branch 2018-09-21 2018-09-21 Risk Advisor 2, [facility] UNIVERSIT 1.2.840.11 4 [id number] 15:41:03 16:55:37 Visit [facility] 350.1.13.10 CLINICS 4.2.7.2.686 [id number] [facility] 2018-09-17 2018-09-17 Letter Kevin [facility] 1.2.492.767 [id number] Univers 00:00:00 00:00:00 (Out) [facility] 350.1.13.10 i ty of CL[place] [id number] [facility] 113 Branch 2018-09-17 2018-09-17 Letter Kevin [facility] 1.2.529.082 [id number] 00:00:00 00:00:00 (Out) [facility] 350.1.13.10 CLINICS 4.2.7.2.686 [id number] 113 2018-09-12 2018-09-12 [facility]phone [facility] 1.2.935.703 [id number] [facility] 00:00:00 00:00:00 Meka Lindsey BL[employer] LEATH[employer]IMMER 350.1.13.10 ity of REGIONAL 4.2.7.2.686 Alejandro as MATERNAL [id number] Med ical & CHILD 130 [facility][1] 2018-09-12 2018-09-12 Telephone [facility] 1.2.093.501 [id number] 00:00:00 00:00:00 Meka Lindsey [employer]MER 350.1.13.10 REGIONAL 4.2.7.2.686 MATERNAL [id number] & CHILD 130 [facility] Results Test Description Test Time Test Comments Results Result Comments Source BASIC METABOLIC PANEL 2020-10-21 19:07:00 Test Item Value Reference Range Interpretation Comme nts SODIUM (test code = NA) 135 mmol/l 134.0-147.0 N POTASSIUM (test code = K) 4.0 mmol/L 3.6-5.2 N CHLORIDE (test code = CL) 101 mmol/l 98.0-107.0 N CARBON DIOXIDE (test code = CO2) 26.4 mmol/l 21.0-33.0 N ANION GAP (test code = GAP) 11.6 0-20 N GLUCOSE (test code = GLU) 92 mg/dl 70.0-110.0 N BLOOD UREA NITROGEN (test code = BUN) 5 mg/dl 7.0-18.0 L CREATININE (test code = CREAT) 0.57 mg/dL 0.60-1.30 L GFR NON BLACK (test code = GFRNONBLACK) 142 mL/min 110-120 H GFR BLACK (test code = GFRBLACK) 172 mL/min 133-145 H CALCIUM (test code = CA) 9.0 mg/dl 8.0-10.5 N HCG [id number] 19:07:00 Test Item Value Reference Range Interpretation Comments HCG SERUM (test 08144 MIU/ML 1-5 H REPRESEN TATIVE RANGE code = HCG) OF EXPECTED HCG CONCENTRATIONS: TIME POST CONCEPTION MIU/ML <5 NOT 1 WEEK 5 - 50 2 WEEKS 4 - 1, 000 3 WEEKS 1,000 - 5,0 00 4 WEEKS 600 - 10,000 5 - 6 WEEKS 1,500 - 100,000 7 - 8 WEEKS 1 6,000 - 200,000 2-3 MON THS 12, 000 - 300,000 2ND TRI MESTER 24 ,000 - 55,000 3RD TRIM JAYNE 6, 000 -48,000Results in michael-Internati onal Units/mL BASIC METABOLIC [id number] 18:18:00 Test Item Value Reference Range Interpretation Comments SODIUM (test code = NA) 135 mmol/l 134.0-147.0 N POTASSIUM (test code = K) 4.0 mmol/L 3.6-5.2 N CHLORIDE (test code = CL) 101 mmol/l 98.0-107.0 N CARBON DIOXIDE (test code = CO2) 26.4 mmol/l 21.0-33.0 N ANION GAP (test code = GAP) 11.6 0-20 N GLUCOSE (test code = GLU) 92 mg/dl 70.0-110.0 N BLOOD UREA NITROGEN (test code = 5 mg/dl 7.0-18.0 L BUN) CREATININE (test code = CREAT) 0.57 mg/dL 0.60-1.30 L GFR NON BLACK (test code = 142 mL/min 110-120 H GFRNONBLACK) GFR BLACK (test code = GFRBLACK) 172 mL/min 133-145 H CALCIUM (test code = CA) 9.0 mg/dl 8.0-10.5 N HCG [id number] 18:18:00 Test Item Value Reference Range Interpretation Comments HCG SERUM (test code = HCG) MIU/ML 1-5 BASIC METABOLIC [id number] 18:08:00 Test Item Value Reference Range Interpretation Comments SODIUM (test code = NA) 135 mmol/l 134.0-147.0 N POTASSIUM (test code = K) 4.0 mmol/L 3.6-5.2 N CHLORIDE (test code = CL) 101 mmol/l 98.0-107.0 N CARBON DIOXIDE (test code = CO2) 26.4 mmol/l 21.0-33.0 N ANION GAP (test code = GAP) 11.6 0-20 N GLUCOSE (test code = GLU) mg/dl 70.0-110.0 BLOOD UREA NITROGEN (test code = mg/dl 7.0-18.0 BUN) CREATININE (test code = CREAT) mg/dL 0.60-1.30 GFR NON BLACK (test code = mL/min 110-120 GFRNONBLACK) GFR BLACK (test code = GFRBLACK) mL/min 133-145 CALCIUM (test code = CA) mg/dl 8.0-10.5 HCG [id number] 18:08:00 Test Item Value Reference Range Interpretation Comments HCG SERUM (test code = HCG) MIU/ML 1-5 CBC W/AUTO [id number] 18:03:00 Test Item Value Reference Range Interpretation Comments WHITE BLOOD CELL (test code = 4.9 K/mm3 4.5-11.0 N WBC) RED BLOOD CELL (test code = 4.55 M/mm3 3.80-5.20 N RBC) HEMOGLOBIN (test code = HGB) 13.6 gm/dL 12.0-16.0 N HEMATOCRIT (test code = HCT) 39.2 % 36.0-48.0 N MEAN CELL VOLUME (test code = 86.2 UM3 82.0-99.0 N MCV) MEAN CELL HGB (test code = MCH) 29.9 UUG 25.5-32.5 N MEAN CELL HGB CONCETRATION 34.7 gm/dL 29.0-35.5 N (test code = MCHC) RED CELL DISTRIBUTION WIDTH 11.9 % 11.5-15.0 N (test code = RDW) RED CELL DISTRIBUTION WIDTH SD 37.4 fL 34.8-50.2 N (test code = RDW-SD) PLATELET COUNT (test code = 251 K/mm3 150-400 N PLT) MEAN PLATELET VOLUME (test code 9.7 fl 7.4-10.4 N = MPV) NEUTROPHIL % (test code = NT%) 48.6 % 49.0-76.0 L IMMATURE GRANULOCYTE % (test 0.2 % 0.0-0.4 N code = IG%) LYMPHOCYTE % (test code = LY%) 39.8 % 23.0-38.0 H MONOCYTE % (test code = MO%) 10.2 % 1.0-10.0 H EOSINOPHIL % (test code = EO%) 0.8 % 1.0-5.0 L BASOPHIL % (test code = BA%) 0.4 % 0.0-1.0 N NUCLEATED RBC % (test code = 0.0 % 0.0-0.1 N NRBC%) NEUTROPHIL # (test code = NT#) 2.4 K/mm3 2.4-6.3 N IMMATURE GRANULOCYTE # (test 0.01 x10 3/uL 0.00-0.07 N code = IG#) LYMPHOCYTE # (test code = LY#) 1.9 K/mm3 1.2-4.0 N MONOCYTE # (test code = MO#) 0.5 K/mm3 0.0-0.6 N EOSINOPHIL # (test code = EO#) 0.0 K/MM3 0.0-0.7 N BASOPHIL # (test code = BA#) 0.0 K/mm3 0.0-0.2 N NUCLEATED RBC # (test code = 0.00 X10 3uL 0.00-0.01 N NRBC#) - DUP AB/PEL/SC [id number] 17:43:00 [facility] : 2000 Sex: F FAX: Rohit Nails MD [place]: St: REG Name: LING MERCEDES [facility] : 2000 Age/S: 19/F [address] [facility] Unit #: [id number] Loc: [address] Phys: [place] [id number] Acct: [id number] Dis Date: Status: REG ER PHONE #: [phone] Exam Date: 10/21/2020 1723 FAX #: [phone] Reason: pelvic pain EXAMS: CPT CODE: [id number] DUP AB/PEL/SC COMP 79606 INDICATION: Pelvic Pain LOCATION:T18 COMPARISON: None available. FINDINGS: Real time transabdominal and transvaginal examination of the pelvis was performed to evaluate first trimester bleeding. Spectral Doppler and color Doppler sonographic analysis of the adnexa was performed. The uterus measures 9.7 x 6.1 x 7.2. The right ovary measures 3.8 x 1.9 x 2.1 and demonstrates a normal sonographic appearance. The left ovary measures 3.9 x 3.1 x 3.3 and demonstrates a normal sonographic appearance. There is a corpus luteal cyst at the left ovary measuring 2.8 cm. There is ovarian arterial blood flow bilaterally. There is atrace amount of free fluid within the cul-de-sac, likely physiologic. Viable intr auterine is visualized. Miguel Barrera-rump length measures 1.3 cm consistent with estimated sonographic gestational age of 7 weeks 4 days. heart rate is present and measures 137 bpm. There is a 0.7 x 0.5 x 0.7 cm hypoechoic region adjacent to the gestational sac. No suspicious adnexal mass is visualized. IMPRESSION: 1. Viable uterine is visualized with crown-rump length of 1.3 cm consistent with estimated sonographic gestational age of 7 weeks 4 days. 2. 7 mm hypoechoic region adjacent to the gestational sac suspicious for small subchorionic hemorrhage. 3. Trace amount of free fluid within the cul-de-sac, likely physiologic. 4. Other findings as detailed above. at 1743 Reported and signed by: Shawn Baker M.D. PAGE 1 Signed Report (CONTINUED) FAX: Rohit Nails MD [place]: St: REG Name: LING MERCEDES [facility] : 2000 Age/S: 19/F [address] [facility] Unit #: [id number] Loc: E.ERS[address] [place], [place]: [place] [id number] Acct: [id number] Dis Date: Status: REG ER PHONE #: [phone] Exam Date: 10/21/2020 1723 FAX #: [phone] Reason: pelvic pain EXAMS: CPT CODE: [id number] DUP AB/PEL/SC COMP 59602 <Continued> CC: Rohit Nails MD Technologist: TINO WADE Trnyfn Date/Time/By: 10/21/2020 (0393) : By: [email or web address] PAGE 2 Signed Report FAX: Rohit Nails MD [place]: St: REG Name: LING MERCEDES [facility] : 2000 Age/S: [address] [employer] Unit#: [id number] Loc: [address] Phys: [place] [address] Acct: [id number] Dis Date: Status: REG ER PHONE #: [phone] Exam Date: 10/21/2020 1723 FAX #: [phone] Reason: pelvic pain EXAMS: CPT CODE: [id number] DUP AB/PEL/SC COMP 86805 <Continued> Orig Print D/T: S: 10/21/2020 (0220) PAGE 3 Signed Report- US PREG UT [id number] 17:43:00 [facility] MERCEDESMIKE JinCYNDEE MORGAN : 2000 Sex: F FAX: Rohit Nails MD [place]: St: REG Name: MERCEDES,LING MORGAN [facility] : 2000 Age/S: [address] [employer] Unit #: [id number] Loc: E[address]ERS[address] [place], [place]: [place] [address] Acct: [id number] Dis Date: Status: REG ER PHONE #: [phone] Exam Date: 10/21/2020 1723 FAX #: [phone] Reason: pelvic pain EXAMS: CPT CODE: [id number] US PREG UT TRANSVAGINAL 74299 INDICATION: Pelvic Pain LOCATION:T18 COMPARISON: None available. FINDINGS: Real time transabdominal and transvaginal examination of the pelvis was performed to evaluate first trimester bleeding. Spectral Doppler and color Doppler sonographic analysis of the adnexa was performed. The uterus measures 9.7 x 6.1 x 7.2. The right ovary measures 3.8 x 1.9 x 2.1 and demonstrates a normal sonographic appearance. The left ovary measures 3.9 x 3.1 x 3.3 and demonstrates a normal sonographic appearance. There is a corpus luteal cyst at the left ovary measuring 2.8 cm. There is ovarian arterial blood flow bilaterally. There is atrace amount of free fluid within the cul-de-sac, likely physiologic. Viable intr auterine is visualized. Miguel Barrera-rump length measures 1.3 cm consistent with estimated sonographic gestational age of 7 weeks 4 days. heart rate is present and measures 137 bpm. There is a 0.7 x 0.5 x 0.7 cm hypoechoic region adjacent to the gestational sac. No suspicious adnexal mass is visualized. IMPRESSION: 1. Viable uterine is visualized with crown-rump length of 1.3 cm consistent with estimated sonographic gestational age of 7 weeks 4 days. 2. 7 mm hypoechoic region adjacent to the gestational sac suspicious for small subchorionic hemorrhage. 3. Trace amount of free fluid within the cul-de-sac, likely physiologic. 4. Other findings as detailed above. at 1743 Reported and signed by: Shawn Baker M.D. PAGE 1 Signed Report (CONTINUED) FAX: Rohit Nails MD [place]: St: REG Name: LING MERCEDES [facility] : 2000 Age/S: 19/F [address] [employer] Unit #: [id number] Loc: E.ERS[address] [place], [place]: [place] [address] Acct: [id number] Dis Date: Status: REG ER PHONE #: [phone] Exam Date: 10/21/2020 172 FAX #: [phone] Reason: pelvic pain EXAMS: CPT CODE: [id number] US PREG UT TRANSVAGINAL 91398 <Continued> CC: Rohit Nails MD Technologist: [id number] 1; TINO WADE [facility] Date/Time/By: 10/21/2020 (174) : By: [email or web address] PAGE 2 Signed Report FAX: Rohit Nails MD [place]: St: REG Name: LING MERCEDES [facility] : 2000 Age/S: 19/F [address] [employer] Unit#: [id number] Loc: E.ERS[address] [place], [place]: [place] [address] Acct: [id number] Dis Date: Status: REG ER PHONE #: [phone] Exam Date: 10/21/20201722 FAX #: [phone] Reason: pelvic pain EXAMS: CPT CODE: [id number] US PREG UT TRANSVAGINAL 39561 <Continued> Orig Print D/T: S: 10/21/2020 (0264) PAGE 3 Signed Report- US [id number] 17:43:00 [facility] MERCEDES : 2000 Sex: F FAX: Rohit Nails MD [place]: St: REG Name: MERCEDESLING [facility] : 2000 Age/S: 19/F [address] [facility] Unit #: [id number] Loc: E.ERS[address] [place], [place]: [place] [address] Acct: [id number] Dis Date: Status: REG ER PHONE #: [phone] Exam Date: 10/21/2020 1723 FAX #: [phone] Reason: Pelvic Pain EXAMS: CPT CODE: [id number] US LTD 36313 INDICATION: Pelvic Pain LOCATION:T18 COMPARISON: None available. FINDINGS: Real time transabdominal and transvaginal examination of the pelvis was performed to evaluate first trimester bleeding. Spectral Doppler and color Doppler sonographic analysis of the adnexa was performed. The uterus measures 9.7 x 6.1 x 7.2. The right ovary measures 3.8 x 1.9 x 2.1 and demonstrates a normal sonographic appearance. The left ovary measures 3.9 x 3.1 x 3.3 and demonstrates a normal sonographic appearance. There is a corpus luteal cyst at the left ovary measuring 2.8 cm. There is ovarian arterial blood flow bilaterally. There is atrace amount of free fluid within the cul-de-sac, likely physiologic. Viable intr auterine is visualized. Miguel Barrera-rump length measures 1.3 cm consistent with estimated sonographic gestational age of 7 weeks 4 days. heart rate is present and measures 137 bpm. There is a 0.7 x 0.5 x 0.7 cm hypoechoic region adjacent to the gestational sac. No suspicious adnexal mass is visualized. IMPRESSION: 1. Viable uterine is visualized with crown-rump length of 1.3 cm consistent with estimated sonographic gestational age of 7 weeks 4 days. 2. 7 mm hypoechoic region adjacent to the gestational sac suspicious for small subchorionic hemorrhage. 3. Trace amount of free fluid within the cul-de-sac, likely physiologic. 4. Other findings as detailed above. at 1743 Reported and signed by: Shawn Baker M.D. PAGE 1 Signed Report (CONTINUED) FAX: Rohit Nails MD [place]: St: REG Name: [facility] of [place] : 2000 Age/S: 19/F [address] [facility] Unit #: [id number] Loc: E.ERS2 [place], [place]: [place] [address] Acct: [id number] Dis Date: Status: REG ER PHONE #: [phone] Exam Date: 10/21/2020 1723 FAX #: [phone] Reason: Pelvic Pain EXAMS: CPT CODE: [id number] [place] LTD 13100 <Continued> CC: Rohit Nails MD Technologist: TINO WADE [facility] Date/Time/By: 10/21/2020 (813) : By: [email or web address] PAGE 2 Signed Report FAX: Rohit Nails MD [place]: St: REG Name: [facility] [place] : 2000 Age/S: 19/F [address] [employer] Unit#: [id number] Loc: [address] [place]: [place] [address] Acct: [id number] Dis Date: Status: REG ER PHONE #: [phone] Exam Date: 10/21/2020 1723 FAX #: [phone] Reason: Pelvic Pain EXAMS: CPT CODE: [id number] US LTD 76448 <Continued> Orig Print D/T: S: 10/21/2020 (4905) PAGE 3 Signed ReportUrine [id number] 23:30:25 Test Item Value Reference Range Interpretation Comments Urine culture Mixed kyrie Specimen isolate (test <=10-3 col/cc InformationSp ecimen code = [id number]) Source: Freddie Peterson Site: [facility]- XR WRIST 3 + V [id number] 05:46:00 FAX: Gwyn Root DO [phone] [place]: St: REG Name: [facility]ING [facility] [place] : 2000 Age/S: 18/F [address] [employer] Unit#: [id number] Loc: E.ERS2 [place], [place]: [place] [address] Acct: [id number] Dis Date: Status: REG ER PHONE #: [phone] Exam Date: 09/11/2019545 FAX #: [phone] Reason: Wrist pain EXAMS: CPT CODE: [id number] XR WRIST 3 + V LT [address] EXAM: - XR WRIST 3 + V LT HISTORY: Wrist pain COMPARISON: None available time of interpretation. FINDINGS: Frontal, oblique, and lateral views of the left wrist are provided. No acute fracture or malalignment. No soft tissue findings are apparent. IMPRESSION: No acute fracture. at 0550 Reported and signed by: Audie Ravi M.D. CC: Gwyn Root DO Technologist: LACEY Lira) Bebe Date/Time/By: 09/11/2019 (0546) : By: [email or web address] PAGE 1 Signed Report FAX: DkAnnabel [phone] [place]: St: REG Name: [facility] [place] : 2000 Age/S: 18/F [address] [facility] Unit #: [id number] Loc: E.ERS2 [place], [place]: [place] [address] Acct: [id number] Dis Date: Status: REG ER PHONE #: [phone] Exam Date: 09/11/201946 FAX #: [phone] Reason: Wrist pain EXAMS: CPT CODE: [id number] XR WRIST 3 + V LT [address] <Continued> Orig Print D/T: S: 09/11/2019 (0549) PAGE 2 Signed Report- XR ANKLE 3 + V [id number] 16:36:00 FAX: Shawn Suh [phone] [place]: St: PRE Name: [facility]ING [facility] [place] : 2000 Age/S: 18/F [address] [facility] Unit#: [id number] Loc: E.ERS2 [place], [place] Phys: Shawn Colorado CHIEF SCIENCE OFFICER [address] Acct: [id number] Dis Date: Status: PRE ER PHONE #: [phone] Exam Date: 09/03/2019 1634 FAX #: [phone] Reason: fall EXAMS: CPT CODE: [id number] XR ANKLE 3 + [place] [address] EXAMINATION: - XR ANKLE 3 + V BI. LOCATION: U19. HISTORY: Fall, sprained ankle. COMPARISON: None. FINDINGS/ IMPRESSION: Three views of bilateral ankles demonstrates no soft tissue swelling over medial nor lateral malleolus. No radiographic evidence of acute osseous abnormality. Articular spaces are well-maintained. No radiopaque foreign body. at 1636 Reported and signed by: Barry Casarez M.D. CC: Shawn Colorado NP Technologist: ETTA Spence Date/Time/By: 09/03/2019 (008) : By: [email or web address] PAGE 1 Signed Report FAX: Shawn Suh [phone] [place]: St: PRE -------- [facility] [place] : 2000 Age/S: 18/F [address] [employer] Unit #: [id number] Loc: E.ERS2 [place], [place] Phys: Shawn Colorado CHIEF SCIENCE OFFICER [address] Acct: [id number] Dis Date: Status: PRE ER PHONE #: [phone] Exam Date: 09/03/2019 1634 FAX #: [phone] Reason: fall EXAMS: CPT CODE: [id number] XR ANKLE 3 + [place] [address] <Continued> Orig Print D/T: S: 09/03/2019 (2519) PAGE 2 Signed Report
[2021-04-29 09:36] LABS: Urine Blood Negative (Negative); Urine Glucose Negative (Negative); Urine Protein Negative (Negative); Urine Specific Gravity 1.025 (1.005-1.030); Urine pH 6.5 (5.0-7.0)
[2021-04-29 09:46] LABS: Urine Specific Gravity/Preg 1.025 (1.005-1.030)
[2021-04-29 10:28] LABS: Urine Bacteria 20-50 /HPF (<20); Urine Mucus 3+ /HPF (NONE SEEN); Urine RBC <5 /HPF (NONE SEEN); Urine Trichomonas PRESENT (NONE SEEN)
[2021-04-29] MEDS ORDERED: metroNIDAZOLE 500 MG TABLET ONE (11:01)
[2021-04-29] MEDS ORDERED: AZITHROMYCIN 250 MG TAB ONE (11:01)
[2021-04-29] MEDS ORDERED: CEFTRIAXONE 1000 MG/VIAL ONE (11:01)
--- NOTE | 2021-04-29 11:36 | ER ---
Nurse's Notes [facility] Name: Mateo Bates Age: 20 yrs Sex: Female : 2000 Arrival Date: 04/29/2021 Time: 08:49 Bed 19 Private MD: Diagnosis: Trichomoniasis, unspecified Presentation: 04/29 08:58 Chief complaint: Patient states: Vaginal irriation that started yesterday and has a ww vaginal cyst. "I had an in October and had weird things going on with my body and I developed a cyst and they told me to just let it pop and it popped yesterday. Also, I am experiencing pregancy symptoms like eating and my stomach turns, nausea and a lot of tired lately". Coronavirus screen: Vaccine status: Patient reports receiving the 2nd dose of the covid vaccine. Client denies travel out of the [place] in the last 14 days. Ebola Screen: Patient denies travel to an Ebola-affected area in the 21 days before illness onset. Initial Sepsis Screen: Does the patient meet any 2 criteria? No. Patient's initial sepsis screen is negative. Does the patient have a suspected source of infection? No. Patient's initial sepsis screen is negative. Risk Assessment: Do you want to hurt yourself or someone else? Patient reports no desire to harm self or others. Onset of symptoms is unknown. 08:58 Method Of Arrival: Ambulatory ww 08:58 Acuity: MEAGHAN 4 ww Triage Assessment: 09:03 General: Appears in no apparent distress. comfortable, Behavior is calm, cooperative. ww Pain: Complains of pain in groin. EENT: No signs and/or symptoms were reported regarding the EENT system. Neuro: Level of Consciousness is awake, alert, obeys commands, Oriented to person, place, time, situation, Moves all extremities. Gait is steady, Speech is normal. Cardiovascular: Capillary refill < 3 seconds Patient's skin is warm and dry. Respiratory: Airway is patent Respiratory effort is even, unlabored, Respiratory pattern is regular, symmetrical. GI: No signs and/or symptoms were reported involving the gastrointestinal system. Musculoskeletal: No signs and/or symptoms reported regarding the musculoskeletal system. CARDIOLOGY FELLOW: 09:03 LMP 04/12/2021 ww Historical: - Allergies: 09:03 No Known Allergies; ww - Home Meds: 09:03 None [Active]; ww - PMHx: 09:03 None; ww - PSHx: 09:03 section; ww - Immunization history:: Adult Immunizations up to date. - Social history:: Smoking status: Patient denies any tobacco usage or history of. Patient uses street drugs, marijuana. Screenin:04 Abuse screen: Denies threats or abuse. Denies injuries from another. Nutritional ww screening: No deficits noted. Tuberculosis screening: No symptoms or risk factors identified. Fall Risk None identified. Assessment: 09:41 General: Appears in no apparent distress. comfortable, Behavior is calm, cooperative, jd3 appropriate for age. Pain: Complains of pain in groin Quality of pain is described as burning. Neuro: Level of Consciousness is awake, alert, obeys commands, Oriented to person, place, time, situation. Cardiovascular: Capillary refill < 3 seconds Patient's skin is warm and dry. Respiratory: Airway is patent Respiratory effort is even, unlabored, Respiratory pattern is regular, symmetrical, Denies cough, shortness of breath. GI: No signs and/or symptoms were reported involving the gastrointestinal system. : Reports discharge, from vagina that is white, vaginal itching. EENT: No signs and/or symptoms were reported regarding the EENT system. Derm: Skin is intact, Skin is dry, Skin is normal, Skin temperature is warm. 10:54 Reassessment: Patient appears in no apparent distress at this time. No changes from jd3 previously documented assessment. Patient and/or family updated on plan of care and expected duration. Pain level reassessed. Patient is alert, oriented x 3, equal unlabored respirations, skin warm/dry/pink. 12:10 Reassessment: Patient appears in no apparent distress at this time. Patient and/or jd3 family updated on plan of care and expected duration. Pain level reassessed. Patient is alert, oriented x 3, equal unlabored respirations, skin warm/dry/pink. Vital Signs: 08:58 BP 110 / 84; Pulse 81; Resp 18; Temp 98.8; Pulse Ox 98% on R/A; Weight 58.97 kg; Height ww 5 ft. 5 in. (165.10 cm); Pain 5/10; 12:10 BP 99 / 59; Pulse 85; Resp 17 S; Pulse Ox 99% on R/A; jd3 08:58 Body Mass Index 21.63 (58.97 kg, 165.10 cm) ww ED Course: 08:49 Patient arrived in ED. ds1 09:01 Triage completed. ww 09:03 Arm band placed on right wrist. ww 09:05 Xavier Daniel NP is PHCP. pm1 09:05 Stephen Curtis MD is Attending Physician. pm1 09:37 Owen Tejeda RN is Primary Nurse. jd3 09:45 Patient has correct armband on for positive identification. Bed in low position. Call jd3 light in reach. Side rails up X 1. Pulse ox on. NIBP on. 10:39 Assist provider with pelvic exam: Set up pelvic tray. Performed by Xavier Daniel NP ag7 Specimens sent to lab. Patient tolerated well. 10:54 Patient did not have IV access during this emergency room visit. jd3 Administered Medications: 11:15 Drug: Flagyl (metroNIDAZOLE) 2 grams Route: PO; ag7 12:11 Follow up: Response: No adverse reaction jd3 11:15 Drug: Rocephin (cefTRIAXone) 1 grams Route: IM; Site: Ventrogluteal RIGHT; ag7 12:11 Follow up: Response: No adverse reaction jd3 11:15 Drug: Zithromax (azithromycin) 1 grams Route: PO; ag7 12:11 Follow up: Response: No adverse reaction jd3 Outcome: 11:36 Discharge ordered by MD. pm1 12:10 Discharged to home ambulatory, with family. jd3 12:10 Condition: stable 12:10 Discharge instructions given to patient, Instructed on discharge instructions, follow up and referral plans. Demonstrated understanding of instructions, follow-up care. 12:11 Patient left the ED. jd3 Addendum: 05/02/2021 11:58 Addendum: Culture Results: Positive urine culture. Patient was not prescribed a a5 antibiotics at discharge. Report given to WENDY for further evaluation and then to correctional cook for follow up with patient. Prescription called-in to pharmacy of choice. to [facility] in [place], [place], called in Macrobid 100 mg PO BID x 7 days per JOSIE Raygoza. Signatures: Cindy Brown ds1 Suzanna Reyes RN RN aa5 Xavier Daniel, CPR INSTRUCTOR CPR INSTRUCTOR pm1 Owen Tejeda, RN RN jd3 Jazmine Wright, RN RN ww Seble Aguilar RN RN ag7
--- NOTE | 2021-04-29 11:36 | EDPHYS ---
Physician Documentation [facility] Name: Mateo Bates Age: 20 yrs Sex: Female : 2000 Arrival Date: 04/29/2021 Time: 08:49 Bed 19 Private MD: RODRICK Physician Stephen Curtis HPI: 04/29 09:42 This 20 yrs old Black Female presents to ER via Ambulatory with complaints of Vaginal pm1 Discharge - With Boil. 09:42 The patient presents with vaginal discharge. Onset: The symptoms/episode began/occurred pm1 3 day(s) ago. Modifying factors: The symptoms are alleviated by nothing, the symptoms are aggravated by nothing. Associated signs and symptoms: Pertinent negatives: dysuria, fever, vaginal bleeding. Severity of symptoms: in the emergency department the symptoms are unchanged. The patient is sexually active, reportedly has a single partner, does not use protection during intercourse. The patient's method of control includes nothing. The patient has not experienced similar symptoms in the past. The patient has not recently seen a physician. Patient presenting to the ER with complaints of vaginal discharge due to concerns her boyfriend has been cheating on her for the last 8 months. Patient also reports a possible boil to left labial area that she occasionally pokes and squeezes. Boil is nonpainful. 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 - Social history:: Smoking status: Patient denies any tobacco usage or history of. Patient uses street drugs, marijuana. ROS: 09:42 Positive for vaginal discharge, Negative for urinary symptoms, vaginal itching. pm1 09:42 Constitutional: Negative for fever, chills, and weight loss. 09:42 Cardiovascular: Negative for chest pain, palpitations, and edema, Respiratory: Negative for shortness of breath, cough, wheezing, and pleuritic chest pain, Abdomen/GI: Negative for abdominal pain, nausea, vomiting, diarrhea, and constipation, Neuro: Negative for headache, weakness, numbness, tingling, and seizure. 09:42 Skin: Positive for of the groin, boil. 09:42 All other systems are negative. Exam: 09:42 Constitutional: This is a well developed, well nourished patient who is awake, alert, pm1 and in no acute distress. Head/Face: Normocephalic, atraumatic. 09:42 Cardiovascular: Exam negative for acute changes, Rate: normal, Rhythm: regular, Pulses: no pulse deficits are appreciated, Heart sounds: normal. 09:42 Respiratory: Exam negative for acute changes, respiratory distress, shortness of breath. 09:42 Abdomen/GI: Exam negative for Inspection: abdomen appears normal, Palpation: abdomen is soft and non-tender, in all quadrants. 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 Sebaceous cyst appearing lesion to left lower labia majora. No surrounding cellulitis, fluctuance, erythema, or tenderness. Vital Signs: 08:58 BP 110 / 84; Pulse 81; Resp 18; Temp 98.8; Pulse Ox 98% on R/A; Weight 58.97 kg; Height ww 5 ft. 5 in. (165.10 cm); Pain 5/10; 12:10 BP 99 / 59; Pulse 85; Resp 17 S; Pulse Ox 99% on R/A; jd3 08:58 Body Mass Index 21.63 (58.97 kg, 165.10 cm) ww MDM: 09:06 Patient medically screened. [facility] 11:35 Data reviewed: vital signs. Data interpreted: Pulse oximetry: on room air is 98 %. pm1 Interpretation: normal. Counseling: I had a detailed discussion with the patient and/or guardian regarding: the historical points, exam findings, and any diagnostic results supporting the discharge/admit diagnosis, lab results, the need for outpatient follow up, to return to the emergency department if symptoms worsen or persist or if there are any questions or concerns that arise at home. 04/29 09:35 Order name: Urine Dipstick-Ancillary; Complete Time: 09:47 EDMS 04/29 09:39 Order name: Test Urine - POC; Complete Time: 09:47 sp 04/29 09:44 Order name: Urine Microscopic Only; Complete Time: 10:41 pm1 04/29 09:47 Order name: Wet Prep; Complete Time: 11:07 pm1 04/29 09:47 Order name: GC (GONORR/CHLAMYDIA) Probe pm1 04/29 10:30 Order name: Urine Culture [facility] 04/29 09:27 Order name: Urine Dipstick-Ancillary (obtain specimen); Complete Time: 09:37 pm1 04/29 09:27 Order name: Urine Test (obtain specimen); Complete Time: 09:37 pm1 04/29 09:44 Order name: Pelvic Exam Setup; Complete Time: 10:02 pm1 Administered Medications: 11:15 Drug: Flagyl (metroNIDAZOLE) 2 grams Route: PO; ag7 12:11 Follow up: Response: No adverse reaction jd3 11:15 Drug: Rocephin (cefTRIAXone) 1 grams Route: IM; Site: Ventrogluteal RIGHT; ag7 12:11 Follow up: Response: No adverse reaction jd3 11:15 Drug: Zithromax (azithromycin) 1 grams Route: PO; ag7 12:11 Follow up: Response: No adverse reaction jd3 Disposition: 18:29 Co-signature as Attending Physician, Stephen Curtis MD I agree with the assessment and kavya plan of care. Disposition Summary: 04/29/21 11:36 Discharge Ordered Location: Home pm1 Problem: new pm1 Symptoms: have improved pm1 Condition: Stable pm1 Diagnosis - Trichomoniasis, unspecified pm1 Followup: pm1 - With: Emergency Department - When: As needed - Reason: Worsening of condition Followup: pm1 - With: Private Physician - When: 2 - 3 days - Reason: Recheck today's complaints, Continuance of care, Re-evaluation by your physician Discharge Instructions: - Discharge Summary Sheet pm1 - Trichomoniasis pm1 Forms: - Medication Reconciliation Form pm1 - Thank You Letter pm1 - Antibiotic Education pm1 - Prescription Opioid Use pm1 - Work release form jd3 Signatures: Dispatcher [employer] Stephen Kennedy MD MD cha Marinas, Patrick, NP SCALP TREATMENT SPECIALIST pm1 Jazmine Wright RN RN ww Glenn, Angela, RN RN ag7 Owen Tejeda RN jd3
[2021-04-29 12:32] VITALS: TEMP 98.8
[2021-04-29 12:33] VITALS: BP 99/59; O2SAT 99
[2021-05-02 12:30] LABS: C.trachomatis RNA,TMA Not Detected (Not Detected)
== END 2021-04-29 12:11 | disposition home or self-care (01) ==
LOC: ER 08:46
DX: A59.9 Trichomoniasis, unspecified (principal)
CPT/HCPCS: 81003; 81015; 81025; 87077; 87086; 87088; 87186; 87210; 87490; 87590; 96372; 99284

== ENCOUNTER 2021-07-29 08:55 | Emergency (ER) | payer OTHER ==
--- OUTSIDE RECORDS SUMMARY | 2021-07-29 09:00 | XMS REPORT | Continuity of Care Document ---
:2000 Author Organization [facility] t Address [address] [place] [address] Care Team Providers Name Role Phone Asked, [...] Number Effective Date Expiration Date [facility] [id number] 2018 CHOICE MEDICAID 00:00:00 Problems Condition Condition Condition Status Onset Resolution Last Treating Co mments Source Name Details Category Date Date Treatment Clinician Date Depo-Prove Depo-Prove Disease Active 2019- U vahe ra ra 1-09 ity of contracept contracept 00:00: Isael dao praful status praful status 00 Ks dical Branch , , Disease Active 2018-02 Univers delivered, delivered, 2-29 it y of current current 00:00: [place] hospitaliz hospitaliz 00 Ks dical ation ation Branch Single Single Disease Active 2018-02 Univers liveborn liveborn 2-29 ity of infant 00:00: [place] 00 Medical Branch Placental Placental Disease Active 2018-02 Uni vers abruption abruption 2-20 ity of 00:00: [place] 00 [facility] Branch Susceptibl Susceptibl Disease Active U vahe e to e to 7-18 ity of Varicella Varicella 00:00: Neftali lewis (non-immun (non-immun 00 Me dical e), e), Branch currently currently in first in first trimester trimester Supervisio Supervisio Disease Active U vahe n of high n of high 7-17 ity of risk risk 00:00: [place] 00 Medi bernadine in first in first Branch trimester trimester Nausea and Nausea and Disease Active U vahe vomiting vomiting 7-17 ity of in in 00:00: [place] 00 Medi bernadine prior to prior to Branch 22 weeks 22 weeks gestation gestation Abdominal Abdominal Disease Active Uni vers cramping cramping 7-17 ity of complicati complicati 00:00: Isael dao ng ng 00 Medical Bran ch Previous Previous Disease Active Unive rs 7-17 ity of delivery delivery 00:00: [place] affecting affecting 00 Medi bernadine , , Br anch antepartum antepartum History of History of Disease Active 2019 U vahe depression depression 7-17 it y of 00:00: [place] 00 Medical Branch Chlamydia Chlamydia Disease Active Uni vers trachomati trachomati 8-22 it y of s s 00:00: [place] infection infection 00 Medi bernadine of lower of lower Branch genitourin genitourin vandana sites vandana sites Vaginal Vaginal Disease Active Univers discharge discharge 1-27 ity of 00:00: [place] 00 Medical Branch Bacterial Bacterial Disease Active Uni vers vaginosis vaginosis 03-15 ity of 00:00: [place] 00 [facility] Allergies, Adverse Reactions, Alerts Allergy Allergy Status Severity Reaction(s) Onset Inactive Treating Comm ents Source Name Type Date Date Clinician No Known DA Active [facility]ie 07-13 [place] [facility] No Known DA Active [facility] Allergie 07-13 [place] s 00:00: [place] 00 [facility] NO KNOWN Drug Active Univers ALLERGIE Class ity of S [facility] [place] [facility] Social History Social Habit Start Date Stop Date Quantity Comments Source ASSERTION 2018-08-03 University of 00:00:00 [facility] [place] [facility] Sex Assigned At Universit y of [facility] Alcohol intake 2019-02-25 2019-02-25 Ex-drinker [place] of 00:00:00 00:00:00 (finding) [facility] [place] [facility] Tobacco use and 2019-02-25 2019-02-25 Never used Universit y of exposure 00:00:00 00:00:00 [facility] [place] [facility] Tobacco Comment 2018-09-02 2018-09-02 Marijuana use Univer sit of 00:00:00 00:00:00 [facility] [place] [facility] History of 2018-08-29 Smoker University of tobacco use 00:00:00 [facility] [place] [facility] Alcohol Comment 2018-03-26 2018-03-[address] 00:00:00 00:00:00 Hospital Smoking Status Start Date Stop Date Source Former smoker 2019-02-25 00:00:00 2019-02-25 00:00:00 [facility] smoker [facility] Medications Ordered Filled Start Stop Current Ordering Indication Dosage Frequency Signature Comments Components Source Medication Medication Date Date Medication? Clinician (SIG) Name Name doxycycline 2020-0 2020- No 100mg Q.5D Take 1 Me thodi (VIBRAMYCIN 7-10 -[address] ) 100 MG 00:00: 04:59 (100 mg Hospi ta capsule 00 :00 total) by l mouth 2 (two) times a day for 7 days. 2018-02 Yes [id number] 1{tbl} Take 1 Univers vitamin 2-29 tablet by ity of w/FA tablet 00:00: mouth 00 daily. Medical Branch ferrous 2018-02 Yes [id number] 325mg Take 1 Un marshal sulfate 325 2-29 tablet by ity of mg (65 mg 00:00: mouth 2 [place] iron) 00 (two) Medical tablet times Branch daily. SERTraline 2018-02 Yes [id number] 50mg Take 1 Univers 50 mg 2-29 tablet by ity of tablet 00:00: mouth [place] 00 daily. Medical Branch 2018-02 Yes [id number] 1{tbl} Take 1 Univers vitamin 2-29 tablet by ity of w/FA tablet 00:00: mouth [place] 00 daily. Medical Branch ferrous 2018-02 Yes [id number] 325mg Take 1 Un marshal sulfate 325 2-29 tablet by ity of mg (65 mg 00:00: mouth 2 [place] iron) 00 (two) Medical tablet times Branch daily. SERTraline 2018-02 Yes [id number] 50mg Take 1 Univers 50 mg 2-29 tablet by ity of tablet 00:00: mouth [place] 00 daily. Medical Branch 2018-02 Yes [id number] 1{tbl} Take 1 Univers vitamin 2-29 tablet by ity of w/FA tablet 00:00: mouth [place] 00 daily. Medical Branch ferrous 2018-02 Yes [id number] 325mg Take 1 Un marshal sulfate 325 2-29 tablet by ity of mg (65 mg 00:00: mouth 2 [place] iron) 00 (two) Medical tablet times Branch daily. SERTraline 2018-02 Yes [id number] 50mg Take 1 Univers 50 mg 2-29 tablet by ity of tablet 00:00: mouth [place] 00 daily. Medical Branch Yes [id number] 1{packe Take 1 Univers vit 8-21 t} Packet by ity of 33-iron-fol 00:00: mouth [place] ic-dha 00 daily. Medical (SELECT-OB Branch + DHA) 29 mg iron-1 mg -250 mg combo pack Yes [id number] 1{packe Take 1 Univers vit 8-21 t} Packet by ity of 33-iron-fol 00:00: mouth [place] ic-dha 00 daily. Medical (SELECT-OB Branch + DHA) 29 mg iron-1 mg -250 mg combo pack Yes [id number] 1{packe Take 1 Univers vit 7-17 t} Packet by ity of 33-iron-fol 00:00: mouth [place] ic-dha 00 daily. Medical (SELECT-OB Branch + DHA) 29 mg iron-1 mg -250 mg combo pack Yes [id number] 1{packe Take 1 Univers vit 7-17 t} Packet by ity of 33-iron-fol 00:00: mouth [place] ic-dha 00 daily. Medical (SELECT-OB Branch + DHA) 29 mg iron-1 mg -250 mg combo pack Yes [id number] 1{packe Take 1 Univers vit 7-17 t} Packet by ity of 33-iron-fol 00:00: mouth [place] ic-dha 00 daily. Medical (SELECT-OB Branch + DHA) 29 mg iron-1 mg -250 mg combo pack Yes [id number] 1{packe Take 1 Univers vit 7-17 t} Packet by ity of 33-iron-fol 00:00: mouth [place] ic-dha 00 daily. Medical (SELECT-OB Branch + DHA) 29 mg iron-1 mg -250 mg combo pack Yes [id number] 1{packe Take 1 Univers vit 7-17 t} Packet by ity of 33-iron-fol 00:00: mouth [place] ic-dha 00 daily. Medical (SELECT-OB Branch + DHA) 29 mg iron-1 mg -250 mg combo pack 2019- No [id number] 1{packe Take 1 Univers vit 7-17 08-21 t} Packet by ity of 33-iron-fol 00:00: 00:[place] :00 daily. Medical (SELECT-OB Branch + DHA) 29 mg iron-1 mg -250 mg combo pack proMETHazin Yes [id number] 25mg Take 1 Univers e 25 mg 7-15 tablet by ity of tablet 00:00: mouth [place] 00 every 6 Medical (six) Branch hours as needed for Nausea and Vomiting (N/V). proMETHazin Yes [id number] 25mg Take 1 Univers e 25 mg 7-15 tablet by ity of tablet 00:00: mouth [place] 00 every 6 Medical (six) Branch hours as needed for Nausea and Vomiting (N/V). proMETHazin Yes [id number] 25mg Take 1 Univers e 25 mg 7-15 tablet by ity of tablet 00:00: mouth [place] 00 every 6 Medical (six) Branch hours as needed for Nausea and Vomiting (N/V). proMETHazin Yes [id number] 25mg Take 1 Univers e 25 mg 7-15 tablet by ity of tablet 00:00: mouth [place] 00 every 6 Medical (six) Branch hours as needed for Nausea and Vomiting (N/V). proMETHazin Yes [id number] 25mg Take 1 Univers e 25 mg 7-15 tablet by ity of tablet 00:00: mouth [place] 00 every 6 Medical (six) Branch hours as needed for Nausea and Vomiting (N/V). proMETHazin Yes [id number] 25mg Take 1 Univers e 25 mg 7-15 tablet by ity of tablet 00:00: mouth [place] 00 every 6 Medical (six) Branch hours as needed for Nausea and Vomiting (N/V). proMETHazin Yes [id number] 25mg Take 1 Univers e 25 mg 7-15 tablet by ity of tablet 00:00: mouth [place] 00 every 6 Medical (six) Branch hours as needed for Nausea and Vomiting (N/V). azithromyci Yes [id number] 1000mg Take 2 Univers n 500 mg 8-30 tablets by ity o f tablet 00:00: mouth [place] 00 daily. Medical Branch azithromyci 0 Yes [id number] 1000mg Take 2 Univers n 500 mg 8-30 tablets by ity o f tablet 00:00: mouth [place] 00 daily. Medical Branch azithromyci 2017-0 Yes [id number] 1000mg Take 2 Univers n 500 mg 8-30 tablets by ity o f tablet 00:00: mouth [place] 00 daily. Medical Branch azithromyci 2017- Yes [id number] 1000mg Take 2 Univers n 500 mg 8-30 tablets by ity o f tablet 00:00: mouth [place] 00 daily. Medical Branch azithromyci 2017- Yes [id number] 1000mg Take 2 Univers n 500 mg 8-30 tablets by ity o f tablet 00:00: mouth [place] 00 daily. [facility] Branch azithromyci 2017- Yes [id number] 1000mg Take 2 Univers n 500 mg 8-30 tablets by ity o f tablet 00:00: mouth [place] 00 daily. Medical Branch azithromyci 2017- Yes [id number] 1000mg Take 2 Univers n 500 mg 8-30 tablets by ity o f tablet 00:00: mouth [place] 00 daily. Medical Branch Immunizations Ordered Immunization Filled Immunization Date Status Commen ts Source Name Name HPV9 2019-02-14 Completed University of 00:00:00 [facility] [place] [facility] HPV9 2019-02-14 Completed University of 00:00:00 [facility] [place] [facility] HPV9 2019-02-14 Completed University of 00:00:00 [facility] [place] [facility] TDAP (ADACEL) VACCINE 2019-02-08 Completed Uni versity of 00:00:00 [facility] [place] [facility] Influenza Virus 2019-02-08 Completed Universit y of Vaccine Quad .5 mL IM 00:00:00 [place] as Medical 6+ MO Branch TDAP (ADACEL) VACCINE 2019-02-08 Completed Uni versity of 00:00:00 [facility] [place] [facility] Influenza Virus 2019-02-08 Completed Universit y of Vaccine Quad .5 mL IM 00:00:00 [place] Medical 6+ MO Branch TDAP (ADACEL) VACCINE 2019-02-08 Completed Uni versity of 00:00:00 [facility] [place] [facility] Influenza Virus 2019-02-08 Completed Universit y of Vaccine Quad .5 mL IM 00:00:00 [place] Medical 6+ MO Branch HPV9 2015-06-15 Completed University of 00:00:00 [facility] [place] [facility] HPV9 2015-06-15 Completed University of 00:00:00 [facility] [place] [facility] HPV9 2015-06-15 Completed University of 00:00:00 [facility] [place] [facility] HPV9 2015-06-15 Completed University of 00:00:00 [facility] [place] [facility] HPV9 2015-06-15 Completed University of 00:00:00 [facility] [place] [facility] HPV9 2015-06-15 Completed University of 00:00:00 [facility] [place] [facility] HPV9 2015-06-15 Completed University of 00:00:00 [facility] [place] [facility] HPV9 2015-06-15 Completed University of 00:00:00 [facility] [place] [facility] HPV9 2015-06-15 Completed University of 00:00:00 [facility] [place] [facility] HPV9 2015-06-15 Completed University of 00:00:00 [facility] [place] [facility] Meningococcal 2015-03-15 Completed University of Polysaccharide 00:00:00 [facility] [place] [facility] bernadine (groups A, C, Y and Branc h W-135) conjugate vaccine (MCV4P) Influenza Virus 2015-03-15 Completed Universit y of Vaccine Quad IM 3+ 00:00:00 [facility] HPV9 2015-03-15 Completed University of 00:00:00 [facility] [place] [facility] Meningococcal 2015-03-15 Completed University of Polysaccharide 00:00:00 [place] Medi bernadine (groups A, C, Y and Branc h W-135) conjugate vaccine (MCV4P) Influenza Virus 2015-03-15 Completed Universit y of Vaccine Quad IM 3+ 00:00:00 [facility] HPV9 2015-03-15 Completed University of 00:00:00 [facility] [place] [facility] Meningococcal 2015-03-15 Completed University of Polysaccharide 00:00:00 [place] Medi bernadine (groups A, C, Y and Branc h W-135) conjugate vaccine (MCV4P) Influenza Virus 2015-03-15 Completed Universit y of Vaccine Quad IM 3+ 00:00:00 [facility] HPV9 2015-03-15 Completed University of 00:00:00 [facility] [place] [facility] Meningococcal 2015-03-15 Completed University of Polysaccharide 00:00:00 [place] Medi bernadine (groups A, C, Y and Branc h W-135) conjugate vaccine (MCV4P) Influenza Virus 2015-03-15 Completed Universit y of Vaccine Quad IM 3+ 00:00:00 [facility] HPV9 2015-03-15 Completed University of 00:00:00 [facility] [place] [facility] Meningococcal 2015-03-15 Completed University of Polysaccharide 00:00:00 [place] Medi bernadine (groups A, C, Y and Branc h W-135) conjugate vaccine (MCV4P) Influenza Virus 2015-03-15 Completed Universit y of Vaccine Quad IM 3+ 00:00:00 [facility] HPV9 2015-03-15 Completed University of 00:00:00 [facility] [place] [facility] Meningococcal 2015-03-15 Completed University of Polysaccharide 00:00:00 [place] Medi bernadine (groups A, C, Y and Branc h W-135) conjugate vaccine (MCV4P) Influenza Virus 2015-03-15 Completed Universit y of Vaccine Quad IM 3+ 00:00:00 [facility] HPV9 2015-03-15 Completed University of 00:00:00 [facility] [place] [facility] Meningococcal 2015-03-15 Completed University of Polysaccharide 00:00:00 [place] Medi bernadine (groups A, C, Y and Branc h W-135) conjugate vaccine (MCV4P) Influenza Virus 2015-03-15 Completed Universit y of Vaccine Quad IM 3+ 00:00:00 [facility] [place] [facility] Branch HPV9 2015-03-15 Completed University of 00:00:00 [facility] [place] [facility] Meningococcal 2015-03-15 Completed University of Polysaccharide 00:00:00 [place] Medi bernadine (groups A, C, Y and Branc h W-135) conjugate vaccine (MCV4P) Influenza Virus 2015-03-15 Completed Universit y of Vaccine Quad IM 3+ 00:00:00 [facility] [place] [facility] Branch HPV9 2015-03-15 Completed University of 00:00:00 [facility] [place] [facility] Meningococcal 2015-03-15 Completed University of Polysaccharide 00:00:00 [place] Medi bernadine (groups A, C, Y and Branc h W-135) conjugate vaccine (MCV4P) Influenza Virus 2015-03-15 Completed Universit y of Vaccine Quad IM 3+ 00:00:00 [facility] [place] [facility] Branch HPV9 2015-03-15 Completed University of 00:00:00 [facility] [place] [facility] Meningococcal 2015-03-15 Completed University of Polysaccharide 00:00:00 [place] Medi bernadine (groups A, C, Y and Branc h W-135) conjugate vaccine (MCV4P) Influenza Virus 2015-03-15 Completed Universit y of Vaccine Quad IM 3+ 00:00:00 [facility] HPV9 2015-03-15 Completed University of 00:00:00 [facility] [place] [facility] HPV 2014-08-18 Completed University of 00:00:00 [facility] [place] [facility] HPV 2014-08-18 Completed University of 00:00:00 [facility] [place] [facility] HPV 2014-08-18 Completed University of 00:00:00 [facility] Branch HPV 2014-08-18 Completed University of 00:00:00 [facility] Branch HPV 2014-08-18 Completed University of 00:00:00 [facility] Branch HPV 2014-08-18 Completed University of 00:00:00 [facility] Branch HPV 2014-08-18 Completed University of 00:00:00 [facility] Branch HPV 2014-08-18 Completed University of 00:00:00 [facility] Branch HPV 2014-08-18 Completed University of 00:00:00 [facility] Branch HPV 2014-08-18 Completed University of 00:00:00 [facility] [place] [facility] Influenza Virus 2012-12-23 Completed Universit y of Vaccine 00:00:00 [facility] [place] [facility] Influenza Virus 2012-12-23 Completed Universit y of Vaccine 00:00:00 [facility] [place] [facility] Influenza Virus 2012-12-23 Completed Universit y of Vaccine 00:00:00 [facility] [place] [facility] Influenza Virus 2012-12-23 Completed Universit y of Vaccine 00:00:00 [facility] [place] [facility] Influenza Virus 2012-12-23 Completed Universit y of Vaccine 00:00:00 [facility] [place] [facility] Influenza Virus 2012-12-23 Completed Universit y of Vaccine 00:00:00 [facility] [place] [facility] Influenza Virus 2012-12-23 Completed Universit y of Vaccine 00:00:00 [facility] [place] [facility] Influenza Virus 2012-12-23 Completed Universit y of Vaccine 00:00:00 [facility] [place] [facility] Influenza Virus 2012-12-23 Completed Universit y of Vaccine 00:00:00 [facility] [place] [facility] Influenza Virus 2012-12-23 Completed Universit y of Vaccine 00:00:00 [facility] [place] [facility] Influenza Virus 2012-03-02 Completed Universit y of Vaccine 00:00:00 [facility] [place] [facility] Influenza Virus 2012-03-02 Completed Universit y of Vaccine 00:00:00 [facility] [place] [facility] Influenza Virus 2012-03-02 Completed Universit y of Vaccine 00:00:00 [facility] [place] [facility] Influenza Virus 2012-03-02 Completed Universit y of Vaccine 00:00:00 [facility] [place] [facility] Influenza Virus 2012-03-02 Completed Universit y of Vaccine 00:00:00 [facility] [place] [facility] Influenza Virus 2012-03-02 Completed Universit y of Vaccine 00:00:00 [facility] [place] [facility] Influenza Virus 2012-03-02 Completed Universit y of Vaccine 00:00:00 [facility] [place] [facility] Influenza Virus 2012-03-02 Completed Universit y of Vaccine 00:00:00 [facility] [place] [facility] Influenza Virus 2012-03-02 Completed Universit y of Vaccine 00:00:00 [facility] [place] [facility] Influenza Virus 2012-03-02 Completed Universit y of Vaccine 00:00:00 [facility] [place] [facility] Tdap 2010-05-04 Completed University of 00:00:00 [facility] [place] [facility] Meningococcal Vaccine 2010-05-04 Completed Uni versity of 00:00:00 [facility] [place] [facility] Tdap 2010-05-04 Completed University of 00:00:00 [facility] [place] [facility] Meningococcal Vaccine 2010-05-04 Completed Uni versity of 00:00:00 [facility] [place] [facility] Tdap 2010-05-04 Completed University of 00:00:00 [facility] [place] [facility] Meningococcal Vaccine 2010-05-04 Completed Uni versity of 00:00:00 [facility] [place] [facility] Tdap 2010-05-04 Completed University of 00:00:00 [facility] [place] [facility] Meningococcal Vaccine 2010-05-04 Completed Uni versity of 00:00:00 [facility] [place] [facility] Tdap 2010-05-04 Completed University of 00:00:00 [facility] [place] [facility] Meningococcal Vaccine 2010-05-04 Completed Uni versity of 00:00:00 [facility] [place] [facility] Tdap 2010-05-04 Completed University of 00:00:00 [facility] [place] [facility] Meningococcal Vaccine 2010-05-04 Completed Uni versity of 00:00:00 [facility] Branch Tdap 2010-05-04 Completed University of 00:00:00 [facility] [place] [facility] Meningococcal Vaccine 2010-05-04 Completed Uni versity of 00:00:00 [facility] [place] [facility] TDAP 2010-05-04 Completed University of 00:00:00 [facility] [place] [facility] Meningococcal Vaccine 2010-05-04 Completed Uni versity of 00:00:00 [facility] [place] [facility] Tdap 2010-05-04 Completed University of 00:00:00 [facility] [place] [facility] Meningococcal Vaccine 2010-05-04 Completed Uni versity of 00:00:00 [facility] [place] [facility] Tdap 2010-05-04 Completed University of 00:00:00 [facility] [place] [facility] Meningococcal Vaccine 2010-05-04 Completed Uni versity of 00:00:00 [facility] [place] [facility] H1n1 Vaccine 2009-03-20 Completed University o f 00:00:00 [facility] [place] [facility] H1n1 Vaccine 2009-03-20 Completed University o f 00:00:00 [facility] [place] [facility] H1n1 Vaccine 2009-03-20 Completed University o f 00:00:00 [facility] [place] [facility] H1n1 Vaccine 2009-03-20 Completed University o f 00:00:00 [facility] [place] [facility] H1n1 Vaccine 2009-03-20 Completed University o f 00:00:00 [facility] [place] [facility] H1n1 Vaccine 2009-03-20 Completed University o f 00:00:00 [facility] [place] [facility] H1n1 Vaccine 2009-03-20 Completed University o f 00:00:00 [facility] [place] [facility] H1n1 Vaccine 2009-03-20 Completed University o f 00:00:00 [facility] [place] [facility] H1n1 Vaccine 2009-03-20 Completed University o f 00:00:00 [facility] [place] [facility] H1n1 Vaccine 2009-03-20 Completed University o f 00:00:00 [facility] [place] [facility] Influenza Virus 2009-03-17 Completed Universit y of Vaccine 00:00:00 [facility] [place] [facility] Varicella 2009-03-17 Completed University of (varivax)(chicken 00:00:00 [place] ed[facility] pox) Branch Influenza Virus 2009-03-17 Completed Universit y of Vaccine 00:00:00 [facility] [place] [facility] Varicella 2009-03-17 Completed University of (varivax)(chicken 00:00:00 [place] M edical pox) Branch Influenza Virus 2009-03-17 Completed Universit y of Vaccine 00:00:00 [facility] [place] [facility] Varicella 2009-03-17 Completed University of (varivax)(chicken 00:00:00 [place] M edical pox) Branch Influenza Virus 2009-03-17 Completed Universit y of Vaccine 00:00:00 [facility] [place] [facility] Varicella 2009-03-17 Completed University of (varivax)(chicken 00:00:00 [place] M edical pox) Branch Influenza Virus 2009-03-17 Completed Universit y of Vaccine 00:00:00 [facility] [place] [facility] Varicella 2009-03-17 Completed University of (varivax)(chicken 00:00:00 [place] M edical pox) Branch Influenza Virus 2009-03-17 Completed Universit y of Vaccine 00:00:00 [facility] [place] [facility] Varicella 2009-03-17 Completed University of (varivax)(chicken 00:00:00 [place] M edical pox) Branch Influenza Virus 2009-03-17 Completed Universit y of Vaccine 00:00:00 [facility] [place] [facility] Varicella 2009-03-17 Completed University of (varivax)(chicken 00:00:00 [place] M edical pox) Branch Influenza Virus 2009-03-17 Completed Universit y of Vaccine 00:00:00 [facility] [place] [facility] Influenza Virus 2009-03-17 Completed Universit y of Vaccine 00:00:00 [facility] [place] [facility] Varicella 2009-03-17 Completed University of (varivax)(chicken 00:00:00 [place] M edical pox) Branch Varicella 2009-03-17 Completed University of (varivax)(chicken 00:00:00 [place] M edical pox) Branch Influenza Virus 2009-03-17 Completed Universit y of Vaccine 00:00:00 [facility] [place] [facility] Varicella 2009-03-17 Completed University of (varivax)(chicken 00:00:00 [place] M edical pox) [place] Influenza Virus 2005-01-08 Completed Universit y of Vaccine 00:00:00 [facility] [place] [facility] Influenza Virus 2005-01-08 Completed Universit y of Vaccine 00:00:00 [facility] [place] [facility] Influenza Virus 2005-01-08 Completed Universit y of Vaccine 00:00:00 [facility] [place] [facility] Influenza Virus 2005-01-08 Completed Universit y of Vaccine 00:00:00 [facility] [place] [facility] Influenza Virus 2005-01-08 Completed Universit y of Vaccine 00:00:00 [facility] [place] [facility] Influenza Virus 2005-01-08 Completed Universit y of Vaccine 00:00:00 [facility] [place] [facility] Influenza Virus 2005-01-08 Completed Universit y of Vaccine 00:00:00 [facility] [place] [facility] Influenza Virus 2005-01-08 Completed Universit y of Vaccine 00:00:00 [facility] [place] [facility] Influenza Virus 2005-01-08 Completed Universit y of Vaccine 00:00:00 [facility] [place] [facility] Influenza Virus 2005-01-08 Completed Universit y of Vaccine 00:00:00 [facility] [place] [facility] DTAP 2002-12-30 Completed University of 00:00:00 [facility] [place] [facility] Influenza Virus 2002-12-30 Completed Universit y of Vaccine 00:00:00 [facility] [place] [facility] MMR 2002-12-30 Completed University of 00:00:00 [facility] [place] [facility] Polio (IPV/OPV) 2002-12-30 Completed Universit y of 00:00:00 [facility] [place] [facility] DTAP 2002-12-30 Completed University of 00:00:00 [facility] [place] [facility] Influenza Virus 2002-12-30 Completed Universit y of Vaccine 00:00:00 [facility] [facility] MMR 2002-12-30 Completed [facility] 00:00:00 [facility] Polio (IPV/OPV) 2002-12-30 Completed [facility] 00:00:00 [facility] DTAP 2002-12-30 Completed [facility] 00:00:00 [facility] Influenza Virus 2002-12-30 Completed [facility] Vaccine 00:00:00 [facility] MMR 2002-12-30 Completed [facility] 00:00:00 [facility] Polio (IPV/OPV) 2002-12-30 Completed [facility] 00:00:00 [facility] DTAP 2002-12-30 Completed [facility] 00:00:00 [facility] Influenza Virus 2002-12-30 Completed [facility] Vaccine 00:00:00 [facility] MMR 2002-12-30 Completed [facility] 00:00:00 [facility] Polio (IPV/OPV) 2002-12-30 Completed [facility] 00:00:00 [facility] DTAP 2002-12-30 Completed [facility] 00:00:00 [facility] Influenza Virus 2002-12-30 Completed [facility] Vaccine 00:00:00 [facility] MMR 2002-12-30 Completed [facility] 00:00:00 [facility] Polio (IPV/OPV) 2002-12-30 Completed [facility] 00:00:00 [facility] DTAP 2002-12-30 Completed [facility] 00:00:00 [facility] Influenza Virus 2002-12-30 Completed [facility] Vaccine 00:00:00 [facility] MMR 2002-12-30 Completed [facility] 00:00:00 [facility] Polio (IPV/OPV) 2002-12-30 Completed [facility] 00:00:00 [facility] DTAP 2002-12-30 Completed [facility] 00:00:00 [facility] DTAP 2002-12-30 Completed [facility] 00:00:00 [facility] Influenza Virus 2002-12-30 Completed [facility] Vaccine 00:00:00 [facility] MMR 2002-12-30 Completed [facility] 00:00:00 [facility] Polio (IPV/OPV) 2002-12-30 Completed [facility] 00:00:00 [facility] Influenza Virus 2002-12-30 Completed [facility] Vaccine 00:00:00 [facility] MMR 2002-12-30 Completed [facility] 00:00:00 [facility] Polio (IPV/OPV) 2002-12-30 Completed [facility] 00:00:00 [facility] DTAP 2002-12-30 Completed [facility] 00:00:00 [facility] Influenza Virus 2002-12-30 Completed [facility] Vaccine 00:00:00 [facility] MMR 2002-12-30 Completed [facility] 00:00:00 [facility] Polio (IPV/OPV) 2002-12-30 Completed [facility] 00:00:00 [facility] DTAP 2002-12-30 Completed [facility] 00:00:00 [facility] Influenza Virus 2002-12-30 Completed [facility] Vaccine 00:00:00 [facility] MMR 2002-12-30 Completed [facility] 00:00:00 [facility] Polio (IPV/OPV) 2002-12-30 Completed [facility] 00:00:00 [facility] HEPATITIS A 2001-12-03 Completed [facility] 00:00:00 [facility] HEPATITIS A 2001-12-03 Completed [facility] 00:00:00 [facility] HEPATITIS A 2001-12-03 Completed [facility] 00:00:00 [facility] HEPATITIS A 2001-12-03 Completed [facility] 00:00:00 [facility] HEPATITIS A 2001-12-03 Completed [facility] 00:00:00 [facility] HEPATITIS A 2001-12-03 Completed [facility] 00:00:00 [facility] HEPATITIS A 2001-12-03 Completed [facility] 00:00:00 [facility] HEPATITIS A 2001-12-03 Completed [facility] 00:00:00 [facility] HEPATITIS A 2001-12-03 Completed [facility] 00:00:00 [facility] HEPATITIS A 2001-12-03 Completed [facility] 00:00:00 [facility] HEPATITIS A 2000-12-15 Completed [facility] 00:00:00 [facility] Hep B, Adol or Pedi 2000-12-15 Completed [facility]ive rsity of Dosage 00:00:00 [facility] HEPATITIS A 2000-12-15 Completed [facility] 00:00:00 [facility] Hep B, Adol or Pedi 2000-12-15 Completed [facility]ive rsity of Dosage 00:00:00 [facility] HEPATITIS A 2000-12-15 Completed [facility] 00:00:00 [facility] Hep B, Adol or Pedi 2000-12-15 Completed [facility] rs[facility] of Dosage 00:00:00 [facility] HEPATITIS A 2000-12-15 Completed [facility] 00:00:00 [facility] Hep B, Adol or Pedi 2000-12-15 Completed [facility]ive rs[facility] of Dosage 00:00:00 [facility] HEPATITIS A 2000-12-15 Completed [facility] 00:00:00 [facility] Hep B, Adol or Pedi 2000-12-15 Completed [facility]ive rs[facility] of Dosage 00:00:00 [facility] HEPATITIS A 2000-12-15 Completed [facility] 00:00:00 [facility] Hep B, Adol or Pedi 2000-12-15 Completed [facility] rs[facility] of Dosage 00:00:00 [facility] HEPATITIS A 2000-12-15 Completed [facility] 00:00:00 [facility] Hep B, Adol or Pedi 2000-12-15 Completed [facility]ive rs[facility] of Dosage 00:00:00 [facility] HEPATITIS A 2000-12-15 Completed [facility] 00:00:00 [facility] Hep B, Adol or Pedi 2000-12-15 Completed [facility]ive rs[facility] of Dosage 00:00:00 [facility] HEPATITIS A 2000-12-15 Completed [facility] 00:00:00 [facility] Hep B, Adol or Pedi 2000-12-15 Completed [facility]ive rsity of Dosage 00:00:00 [facility] HEPATITIS A 2000-12-15 Completed [facility] 00:00:00 [facility] Hep B, Adol or Pedi 2000-12-15 Completed [facility] rs[facility] of Dosage 00:00:00 [facility] Hep B, Adol or Pedi 2000-05-29 Completed [facility]ive rs[facility] of Dosage 00:00:00 [facility] Pneumococcal 7 2000-05-29 Completed [facility] of Conjugate, PCV7 00:00:00 [facility] DTAP 2000-05-29 Completed [facility] 00:00:00 [facility] Hep B, Adol or Pedi 2000-05-29 Completed [facility]ive rsity of Dosage 00:00:00 [facility] Pneumococcal 7 2000-05-29 Completed [facility] of Conjugate, PCV7 00:00:00 [facility] (Pre[facility]ar[facility] DTAP 2000-05-29 Completed [facility] 00:00:00 [facility] Hep B, Adol or Pedi 2000-05-29 Completed [facility]ive rsity of Dosage 00:00:00 [facility] Pneumococcal 7 2000-05-29 Completed [facility] of Conjugate, PCV7 00:00:00 [facility] (Prevnar[facility] DTAP 2000-05-29 Completed [facility] 00:00:00 [facility] Hep B, Adol or Pedi 2000-05-29 Completed [facility]ive rsity of Dosage 00:00:00 [facility] Hep B, Adol or Pedi 2000-05-29 Completed [facility]ive rs[facility] of Dosage 00:00:00 [facility] Pneumococcal 7 2000-05-29 Completed [facility] Conjugate, PCV7 00:00:00 [facility] DTAP 2000-05-29 Completed [facility] 00:00:00 [facility] Pneumococcal 7 2000-05-29 Completed [facility] of Conjugate, PCV7 00:00:00 [facility] (Pre[facility]ar[facility] Hep B, Adol or Pedi 2000-05-29 Completed [facility]ive rsity of Dosage 00:00:00 [facility] Pneumococcal 7 2000-05-29 Completed [facility] Conjugate, PCV7 00:00:00 [facility] DTAP 2000-05-29 Completed [facility] 00:00:00 [facility] DTAP 2000-05-29 Completed [facility] 00:00:00 [facility] Hep B, Adol or Pedi 2000-05-29 Completed [facility]ive rsity of Dosage 00:00:00 [facility] Pneumococcal 7 2000-05-29 Completed [facility] of Conjugate, PCV7 00:00:00 [facility] (Pre[facility]ar[facility] DTAP 2000-05-29 Completed [facility] 00:00:00 [facility] Hep B, Adol or Pedi 2000-05-29 Completed [facility]ive rsity of Dosage 00:00:00 [facility] Pneumococcal 7 2000-05-29 Completed [facility] of Conjugate, PCV7 00:00:00 [facility] (Pre[facility]ar[facility] DTAP 2000-05-29 Completed [facility] 00:00:00 [facility] Hep B, Adol or Pedi 2000-05-29 Completed [facility]ive rsity of Dosage 00:00:00 [facility] Pneumococcal 7 2000-05-29 Completed [facility] of Conjugate, PCV7 00:00:00 [facility] (Pre[facility]ar[facility] DTAP 2000-05-29 Completed [facility] 00:00:00 [facility] Hep B, Adol or Pedi 2000-05-29 Completed [facility]ive rsity of Dosage 00:00:00 [facility] Pneumococcal 7 2000-05-29 Completed [facility] Conjugate, PCV7 00:00:00 [facility] (Prevnar[facility] DTAP 2000-05-29 Completed [facility] 00:00:00 [facility] MMR 2000-04-08 Completed [facility] 00:00:00 [facility] Pneumococcal 7 2000-04-08 Completed [facility] of Conjugate, PCV7 00:00:00 [facility] Varicella 2000-04-08 Completed [facility] of (varivax)(chicken 00:00:00 [facility] edical pox) Branch HIB 4 Dose Schedule 2000-04-08 Completed Unive rsity of 00:00:00 [facility] MMR 2000-04-08 Completed [facility] 00:00:00 [facility] Pneumococcal 7 2000-04-08 Completed [facility] Conjugate, PCV7 00:00:00 [facility] (Pre[facility]ar[facility] Varicella 2000-04-08 Completed [facility] (varivax)(chicken 00:00:00 [facility] pox) [facility] HIB 4 Dose Schedule 2000-04-08 Completed Unive rsity of 00:00:00 [facility] MMR 2000-04-08 Completed [facility] 00:00:00 [facility] Pneumococcal 7 2000-04-08 Completed [facility] Conjugate, PCV7 00:00:00 [facility] (Prevnar[facility] Varicella 2000-04-08 Completed [facility] (varivax)(chicken 00:00:00 [facility] pox) [facility] HIB 4 Dose Schedule 2000-04-08 Completed Unive rsity of 00:00:00 [facility] MMR 2000-04-08 Completed [facility] 00:00:00 [facility] MMR 2000-04-08 Completed [facility] 00:00:00 [facility] Pneumococcal 7 2000-04-08 Completed [facility] Conjugate, PCV7 00:00:00 [facility] (Prevnar[facility]) [facility] Varicella 2000-04-08 Completed [facility] (varivax)(chicken 00:00:00 [facility] pox) [facility] Pneumococcal 7 2000-04-08 Completed [facility] of Conjugate, PCV7 00:00:00 [facility] (Prevnar7) [facility] HIB 4 Dose Schedule 2000-04-08 Completed Unive rsity of 00:00:00 [facility] Varicella 2000-04-08 Completed [facility] (varivax)(chicken 00:00:00 [facility] pox) [facility] MMR 2000-04-08 Completed [facility] 00:00:00 [facility] Pneumococcal 7 2000-04-08 Completed [facility] of Conjugate, PCV7 00:00:00 [facility] (Prevnar[facility] Varicella 2000-04-08 Completed [facility] (varivax)(chicken 00:00:00 [facility] pox) [facility] HIB 4 Dose Schedule 2000-04-08 Completed [facility]ive rsity of 00:00:00 [facility] MMR 2000-04-08 Completed [facility] 00:00:00 [facility] Pneumococcal 7 2000-04-08 Completed [facility] of Conjugate, PCV7 00:00:00 [facility] (Prevnar[facility] Varicella 2000-04-08 Completed [facility] (varivax)(chicken 00:00:00 [place] [facility] pox) [facility] HIB 4 Dose Schedule 2000-04-08 Completed Unive rsity of 00:00:00 [facility] HIB 4 Dose Schedule 2000-04-08 Completed Unive rsity of 00:00:00 [facility] MMR 2000-04-08 Completed [facility] 00:00:00 [facility] Pneumococcal 7 2000-04-08 Completed [facility] of Conjugate, PCV7 00:00:00 [facility] (Prevnar7) [facility] Varicella 2000-04-08 Completed [facility] of (varivax)(chicken 00:00:00 [facility] edical pox) Branch HIB 4 Dose Schedule 2000-04-08 Completed Unive rsity of 00:00:00 [facility] MMR 2000-04-08 Completed [facility] 00:00:00 [facility] Pneumococcal 7 2000-04-08 Completed [facility] of Conjugate, PCV7 00:00:00 [facility] (Prevnar7) [facility] Varicella 2000-04-08 Completed [facility] of (varivax)(chicken 00:00:00 [facility] edical pox) Branch HIB 4 Dose Schedule 2000-04-08 Completed Unive rsity of 00:00:00 [facility] MMR 2000-04-08 Completed [facility] of 00:00:00 [facility] Pneumococcal 7 2000-04-08 Completed [facility] of Conjugate, PCV7 00:00:00 [facility] ical (Prevnar7) Branch Varicella 2000-04-08 Completed [facility] of (varivax)(chicken 00:00:00 [facility] edical pox) Branch HIB 4 Dose Schedule 2000-04-08 Completed Unive rsity of 00:00:00 [facility] Hep B, Adol or Pedi 1999-06-26 Completed Unive rsity of Dosage 00:00:00 [facility] DTAP 1999-06-26 Completed [facility] 00:00:00 [facility] HIB 4 Dose Schedule 1999-06-26 Completed Unive rsity of 00:00:00 [facility] Polio (IPV/OPV) 1999-06-26 Completed [facility] 00:00:00 [facility] Hep B, Adol or Pedi 1999-06-26 Completed Unive rsity of Dosage 00:00:00 [facility] DTAP 1999-06-26 Completed [facility] 00:00:00 [facility] HIB 4 Dose Schedule 1999-06-26 Completed Unive rsity of 00:00:00 [facility] Polio (IPV/OPV) 1999-06-26 Completed [facility] 00:00:00 [facility] Hep B, Adol or Pedi 1999-06-26 Completed Unive rsity of Dosage 00:00:00 [facility] DTAP 1999-06-26 Completed [facility] 00:00:00 [facility] HIB 4 Dose Schedule 1999-06-26 Completed Unive rsity of 00:00:00 [facility] Hep B, Adol or Pedi 1999-06-26 Completed Unive rsity of Dosage 00:00:00 [facility] Polio (IPV/OPV) 1999-06-26 Completed [facility] 00:00:00 [facility] Hep B, Adol or Pedi 1999-06-26 Completed [facility]ive rsity of Dosage 00:00:00 [facility] DTAP 1999-06-26 Completed [facility] 00:00:00 [facility] HIB 4 Dose Schedule 1999-06-26 Completed Unive rsity of 00:00:00 [facility] Polio (IPV/OPV) 1999-06-26 Completed [facility] 00:00:00 [facility] Hep B, Adol or Pedi 1999-06-26 Completed Unive rsity of Dosage 00:00:00 [facility] DTAP 1999-06-26 Completed [facility] of 00:00:00 [facility] DTAP 1999-06-26 Completed [facility] 00:00:00 [facility] HIB 4 Dose Schedule 1999-06-26 Completed Unive rsity of 00:00:00 [facility] Polio (IPV/OPV) 1999-06-26 Completed [facility] 00:00:00 [facility] HIB 4 Dose Schedule 1999-06-26 Completed [facility]ive rsity of 00:00:00 [facility] Hep B, Adol or Pedi 1999-06-26 Completed Unive rsity of Dosage 00:00:00 [facility] DTAP 1999-06-26 Completed [facility] 00:00:00 [facility] HIB 4 Dose Schedule 1999-06-26 Completed Unive rsity of 00:00:00 [facility] Polio (IPV/OPV) 1999-06-26 Completed [facility] of 00:00:00 [facility] Polio (IPV/OPV) 1999-06-26 Completed [facility] of 00:00:00 [facility] Hep B, Adol or Pedi 1999-06-26 Completed [facility]ive rsity of Dosage 00:00:00 [facility] DTAP 1999-06-26 Completed [facility] 00:00:00 [facility] HIB 4 Dose Schedule 1999-06-26 Completed [facility]ive rsity of 00:00:00 [facility] Polio (IPV/OPV) 1999-06-26 Completed [facility] 00:00:00 [facility] Hep B, Adol or Pedi 1999-06-26 Completed [facility]ive rsity of Dosage 00:00:00 [facility] DTAP 1999-06-26 Completed [facility] 00:00:00 [facility] HIB 4 Dose Schedule 1999-06-26 Completed [facility]ive rsity of 00:00:00 [facility] Polio (IPV/OPV) 1999-06-26 Completed [facility] 00:00:00 [facility] Hep B, Adol or Pedi 1999-06-26 Completed [facility]ive rsity of Dosage 00:00:00 [facility] DTAP 1999-06-26 Completed [facility] of 00:00:00 [facility] HIB 4 Dose Schedule 1999-06-26 Completed [facility]ive rsity of 00:00:00 [facility] Polio (IPV/OPV) 1999-06-26 Completed [facility] of 00:00:00 [facility] DTAP 1999-04-12 Completed [facility] of 00:00:00 [facility] HIB 4 Dose Schedule 1999-04-12 Completed [facility]ive rsity of 00:00:00 [facility] Polio (IPV/OPV) 1999-04-12 Completed [facility] 00:00:00 [facility] DTAP 1999-04-12 Completed [facility] 00:00:00 [facility] HIB 4 Dose Schedule 1999-04-12 Completed [facility]ive rsity of 00:00:00 [facility] Polio (IPV/OPV) 1999-04-12 Completed [facility] of 00:00:00 [facility] DTAP 1999-04-12 Completed [facility] of 00:00:00 [facility] HIB 4 Dose Schedule 1999-04-12 Completed Unive rsity of 00:00:00 [facility] Polio (IPV/OPV) 1999-04-12 Completed [facility] of 00:00:00 [facility] DTAP 1999-04-12 Completed [facility] of 00:00:00 [facility] HIB 4 Dose Schedule 1999-04-12 Completed Unive rsity of 00:00:00 [facility] Polio (IPV/OPV) 1999-04-12 Completed [facility] of 00:00:00 [facility] DTAP 1999-04-12 Completed [facility] of 00:00:00 [facility] DTAP 1999-04-12 Completed [facility] of 00:00:00 [facility] HIB 4 Dose Schedule 1999-04-12 Completed Unive rsity of 00:00:00 [facility] Polio (IPV/OPV) 1999-04-12 Completed [facility] of 00:00:00 [facility] HIB 4 Dose Schedule 1999-04-12 Completed Unive rsity of 00:00:00 [facility] DTAP 1999-04-12 Completed [facility] of 00:00:00 [facility] HIB 4 Dose Schedule 1999-04-12 Completed [facility]ive rsity of 00:00:00 [facility] Polio (IPV/OPV) 1999-04-12 Completed [facility] of 00:00:00 [facility] Polio (IPV/OPV) 1999-04-12 Completed [facility] of 00:00:00 [facility] DTAP 1999-04-12 Completed [facility] of 00:00:00 [facility] HIB 4 Dose Schedule 1999-04-12 Completed Unive rsity of 00:00:00 [facility] Polio (IPV/OPV) 1999-04-12 Completed [facility] of 00:00:00 [facility] DTAP 1999-04-12 Completed [facility] of 00:00:00 [facility] HIB 4 Dose Schedule 1999-04-12 Completed [facility]ive rsity of 00:00:00 [facility] Polio (IPV/OPV) 1999-04-12 Completed [facility] of 00:00:00 [facility] DTAP 1999-04-12 Completed [facility] of 00:00:00 [facility] HIB 4 Dose Schedule 1999-04-12 Completed [facility]ive rsity of 00:00:00 [facility] Polio (IPV/OPV) 1999-04-12 Completed [facility] of 00:00:00 [facility] DTAP 1999-02-02 Completed [facility] 00:00:00 [facility] HIB 4 Dose Schedule 1999-02-02 Completed [facility]ive [facility]ity of 00:00:00 [facility] Polio (IPV/OPV) 1999-02-02 Completed [facility] 00:00:00 [facility] DTAP 1999-02-02 Completed [facility] 00:00:00 [facility] HIB 4 Dose Schedule 1999-02-02 Completed [facility]ive rsity of 00:00:00 [facility] Polio (IPV/OPV) 1999-02-02 Completed [facility] 00:00:00 [facility] DTAP 1999-02-02 Completed [facility] 00:00:00 [facility] HIB 4 Dose Schedule 1999-02-02 Completed [facility]ive rsity of 00:00:00 [facility] Polio (IPV/OPV) 1999-02-02 Completed [facility] of 00:00:00 [facility] DTAP 1999-02-02 Completed [facility] of 00:00:00 [facility] HIB 4 Dose Schedule 1999-02-02 Completed [facility]ive rsity of 00:00:00 [facility] Polio (IPV/OPV) 1999-02-02 Completed [facility] of 00:00:00 [facility] DTAP 1999-02-02 Completed [facility] of 00:00:00 [facility] DTAP 1999-02-02 Completed [facility] of 00:00:00 [facility] HIB 4 Dose Schedule 1999-02-02 Completed [facility]ive rsity of 00:00:00 [facility] Polio (IPV/OPV) 1999-02-02 Completed [facility] 00:00:00 [facility] HIB 4 Dose Schedule 1999-02-02 Completed [facility]ive rsity of 00:00:00 [facility] DTAP 1999-02-02 Completed [facility] 00:00:00 [facility] HIB 4 Dose Schedule 1999-02-02 Completed [facility]ive rsity of 00:00:00 [facility] Polio (IPV/OPV) 1999-02-02 Completed [facility] 00:00:00 [facility] Polio (IPV/OPV) 1999-02-02 Completed [facility] of 00:00:00 [facility] DTAP 1999-02-02 Completed [facility] of 00:00:00 [facility] HIB 4 Dose Schedule 1999-02-02 Completed [facility]ive rsity of 00:00:00 [facility] Polio (IPV/OPV) 1999-02-02 Completed [facility] 00:00:00 [facility] DTAP 1999-02-02 Completed [facility] of 00:00:00 [facility] HIB 4 Dose Schedule 1999-02-02 Completed [facility]ive rsity of 00:00:00 [facility] Polio (IPV/OPV) 1999-02-02 Completed [facility] 00:00:00 [facility] DTAP 1999-02-02 Completed [facility] of 00:00:00 [facility] HIB 4 Dose Schedule 1999-02-02 Completed Unive rsity of 00:00:00 [facility] Polio (IPV/OPV) 1999-02-02 Completed [facility] 00:00:00 [facility] Hep B, Adol or Pedi 1998 Completed Unive rsity of Dosage 00:00:00 [facility] Hep B, Adol or Pedi 1998 Completed Unive rsity of Dosage 00:00:00 [facility] Hep B, Adol or Pedi 1998 Completed Unive rsity of Dosage 00:00:00 [facility] Hep B, Adol or Pedi 1998 Completed [facility]ive [facility]ity of Dosage 00:00:00 [facility] Hep B, Adol or Pedi 1998 Completed Unive rsity of Dosage 00:00:00 [facility] Hep B, Adol or Pedi 1998 Completed Unive rsity of Dosage 00:00:00 [facility] Hep B, Adol or Pedi 1998 Completed Unive [facility]ity of Dosage 00:00:00 [facility] Hep B, Adol or Pedi 1998 Completed Unive rsity of Dosage 00:00:00 [facility] Hep B, Adol or Pedi 1998 Completed [facility]ive [facility] of Dosage 00:00:00 [facility] Hep B, Adol or Pedi 1998 Completed Unive [facility]ity of Dosage 00:00:00 [facility] Vital Signs Vital Name Observation Time Observation Value Comments Source Systolic blood 2018-10-07 20:50:00 102 mm[Hg] Univer sity of pressure [facility] Diastolic blood 2018-10-07 20:50:00 68 mm[Hg] Unive rsity of pressure [facility] Heart rate 2018-10-07 20:50:00 79 /min [facility] of [facility] Body temperature 2018-10-07 20:50:00 36.61 [facility] Respiratory rate 2018-10-07 20:50:00 18 /min [facility] Body weight 2018-10-07 20:50:00 56.881 kg [facility] Systolic blood 2018-10-07 20:50:00 102 mm[Hg] Univer sity of pressure [facility] Diastolic blood 2018-10-07 20:50:00 68 mm[Hg] Unive rsity of [facility]UST Heart rate 2018-10-07 20:50:00 79 /min [facility] Body temperature 2018-10-07 20:50:00 36.61 [facility] Respiratory rate 2018-10-07 20:50:00 18 /min [facility] Body weight 2018-10-07 20:50:00 56.881 kg [facility] Body height 2020-08-26 13:09:[address] [facility] Body weight 2020-08-26 13:09:[address] [facility] BMI 2020-08-26 13:09:00 21.26 kg/m2 [facility] Systolic blood 2020-08-26 13:02:55 107 mm[Hg] [facility] pressure Diastolic blood 2020-08-26 13:02:55 66 mm[Hg] [facility] pressure Heart rate 2020-08-26 13:02:55 78 /min [facility] Body temperature 2020-08-26 13:02:55 37.11 [facility] Respiratory rate 2020-08-26 13:02:55 16 /min [facility] Oxygen saturation in 2020-08-26 13:02:55 97 /min [facility] Arterial blood by Pulse oximetry Procedures Procedure Date / Time Performing Clinician Source Performed URINE CULTURE 2020-08-26 13:27:00 David Woodson spital WET PREP 2020-08-26 13:24:00 David Woodson spital CHLAMYDIA TRACHOMATIS, 2020-08-26 13:24:00 [facility] TMA NEISSERIA GONORRHOEAE, 2020-08-26 13:24:00 [facility] TMA TRICHOMONAS VAGINALIS, 2020-08-26 13:24:00 [facility] TMA URINALYSIS SCREEN AND 2020-08-26 13:13:00 [facility] MICROSCOPY, WITH REFLEX TO CULTURE HCG QUALITATIVE, URINE 2020-08-26 13:13:00 [facility] SCREEN URINE CULTURE 2020-06-28 00:35:00 [facility] LIPASE LEVEL 2020-06-28 00:35:00 [facility] COMPREHENSIVE METABOLIC 2020-06-28 00:35:00 [facility] PANEL HC COMPLETE BLD COUNT 2020-06-28 00:35:00 [facility] W/AUTO DIFF URINALYSIS SCREEN AND 2020-06-28 00:35:00 [facility] MICROSCOPY, WITH REFLEX TO CULTURE HCG QUALITATIVE, URINE 2020-06-28 00:35:00 [facility] SCREEN ESTIMATED GFR 2020-06-28 00:35:00 [facility] Plan of Care Planned Activity Planned Date Details Comments Source Future Scheduled Test COVID-19 VACCINE (1) [facility] [code = COVID-19 VACCINE (1)] Future Scheduled Test Hepatitis C screening [facility] (procedure) [code = 186827882] Future Scheduled Test Screening for [facility] malignant neoplasm of cervix (procedure) [code = 473570686] Future Scheduled Test INFLUENZA VACCINE [facility] [code = INFLUENZA VACCINE] Future Scheduled Test CHLAMYDIA SCREENING [facility] [code = CHLAMYDIA SCREENING] Encounters Start End Encounter Admission Attending Care Care Encounter Source Date/Time Date/Time Type Type Clinicians Facility Department ID 2019-09-11 Inpatient HCAMN MARISA [id number] [facility] 04:47:00 [id number] [facility] 2019-09-03 Inpatient HCAMN MARISA [id number] [facility] 16:03:00 [id number] [facility] 2021-03-04 2021-03-04 Outpatient R [facility] [id number] [facility] 10:15:00 10:15:[id number] [facility] 2021-03-04 2021-03-04 Outpatient R DWAIN [facility] [id number] [facility] 10:15:00 10:15:00 ATTENDING ity [facility] 2020-10-21 2020-10-21 Emergency EM NAKITA Nails [facility] [id number] [facility] 16:01:00 18:39:00 Suchmor [id number] [facility] 2020-08-26 2020-08-26 Emergency David Woodson 1.2.840.1 [id number] Methodi 08:07:00 10:00:[address] 3.430.2.7 Hospit a .3.347567 l .8 2020-06-27 2020-06-27 Emergency Maritza, 1.2.840.1 [id number] [facility]i 19:16:00 20:58:[address] 3.430.2.7 Hospit a .3.569193 l .8 2020-06-27 2020-06-27 Travel 1.2.840.1 1.2.436.716 4821 [id number] Methodi 00:00:00 00:00:[address] 3.430.2.7 0.2.7.3.698 Ho spita .3.242751 084.8 l .8 2019-10-06 2019-10-06 Patient TONG Reulas 1.2.282.494 [id number] Univers 00:00:00 00:00:00 Outreach Mago BUNCH 350.1.13.10 [facility] 4.2.7.2.686 Alejandro as [id number] [address] 2019-05-03 2019-05-03 Outpatient R MILAD [facility] [id number] Univers 15:00:00 15:00:00 MEKA [id number] sobia o f [facility] 2019-05-03 2019-05-03 Telephone Milad [facility] 1.2.293.945 [id number] Univers 00:00:00 00:00:00 Meka L NET SORTER 350.1.13.10 ity of REGIONAL 4.2.7.2.686 Alejandro as MATERNAL [id number] Med ical & CHILD [address] [facility] 2019-05-03 2019-05-03 Telephone [facility] 1.2.627.910 [id number] 00:00:00 00:00:00 Meka Lindsey NET SORTER 350.1.13.10 REGIONAL 4.2.7.2.686 MATERNAL [id number] & CHILD [address] [place] [address] 2019-02-25 2019-02-25 Letter [facility] 1.2.279.371 [id number] Univers 00:00:00 00:00:00 (Out) Marco Antonio NET SORTER 350.1.13.10 ity of [facility] 4.2.7.2.686 Alejandro as MATERNAL [phone] Med ical & CHILD [address] [place] [address] 2018-11-05 2018-11-05 TONG Philip 1.2.840.114 [id number] [facility] 00:00:00 00:00:00 Triage Aneatrice JULIO C 350.1.13.10 ity of HOSPITAL 4.2.7.2.686 Alejandro as [id number] [address] 2018-11-05 2018-11-05 TONG Philip 1.2.840.114 [id number] 16 00:00:00 00:00:00 Triage Aneatrice JULIO C 350.1.13.10 HOSPITAL 4.2.7.2.686 [id number] [facility] 2018-10-07 2018-10-07 Routine Marquita, Jane UNIVERSIT 1.2.840.114 [id number] [facility] 15:22:00 16:10:08 Y HEALTH 350.1.13.10 ity of [place] [id number] [address] 2018-10-07 2018-10-07 Routine Marquita, Jane [facility]ERS[facility] 1.2.840.114 7 [id number] 15:22:00 16:10:08 Y HEALTH 350.1.13.10 Visit CLINICS 4.2.7.2.686 [id number] [facility] 2018-10-01 2018-10-01 Letter Desiree, UNIVERSIT 1.2.581.178 9395 5769 Univers 00:00:00 00:00:00 (Out) Nya De La Cruz Y HEALTH 350.1.13.10 i ty [place] [id number] [address] 2018-10-01 2018-10-01 [facility] 1.2.559.152 2585 5769 00:00:00 00:00:00 (Out) Nya De La Cruz Y HEALTH 350.1.13.10 CLINICS 4.2.7.2.686 [id number] [facility] 2018-09-22 2018-09-22 Abstract [facility] 1.2.840.114 [id number] 755 Univers 00:00:00 00:00:00 Meka Lindsey NET SORTER 350.1.13.10 ity of REGIONAL 4.2.7.2.686 Alejandro as MATERNAL [id number] Med ical & CHILD 130 [facility] 2018-09-22 2018-09-22 Abstract [facility] 1.2.840.114 [id number] 00:00:00 00:00:00 Meka Lindsey NET SORTER 350.1.13.10 REGIONAL 4.2.7.2.686 MATERNAL [id number] & CHILD [address] [place] [address] 2018-09-21 2018-09-21 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 Room UNIVERSIT 1 .2.840.114 [id number] Univers 15:41:03 16:55:37 Visit Dominique Jim Ela HEALTH 350.1.1 3.10 ity of [place] [id number] [address] 2018-09-21 2018-09-21 Air Valve Repairer 2, [facility] UNIVERSIT 1.2.840.11 4 [id number] 15:41:03 16:55:37 Visit [facility] Room Y HEALTH 350.1.13.10 CLINICS 4.2.7.2.686 [id number] [facility] 2018-09-17 2018-09-17 Letter MIGUEL Brown 1.2.239.214 4953 7476 Univers 00:00:00 00:00:00 (Out) [facility] 350.1.13.10 i ty [place] [id number] [address] 2018-09-17 2018-09-17 Letter KE Brown 1.2.313.889 5545 7476 00:00:00 00:00:00 (Out) [facility] 350.1.13.10 CLINICS 4.2.7.2.686 [id number] [facility] 2018-09-12 2018-09-12 Telephone [facility] 1.2.634.295 [id number] 1725 [facility] 00:00:00 00:00:00 Meka Lindsey 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 350.1.13.10 ity of [facility] 4.2.7.2.686 Alejandro as MATERNAL [id number] Med ical & CHILD 130 [facility] 2018-09-12 2018-09-12 Telephone [facility] 1.2.093.955 [id number] 1725 00:00:00 00:00:00 Meka Lindsey NET SORTER 350.1.13.10 [facility] 4.2.7.2.686 MATERNAL [id number] & CHILD [address] [place] [address] Results Test Description Test Time Test Comments [...] = CA) 9.0 mg/dl 8.0-10.5 N HCG [id number] 19:07:00 Test Item Value Reference Range Interpretation Comments HCG SERUM (test 32842 MIU/ML 1-5 H REPRESEN TATIVE RANGE code [...] -48,000Results in michael-Internati onal Units/mL BASIC METABOLIC [id number] 18:18:00 Test Item Value Reference Range Interpretation [...] = CA) 9.0 mg/dl 8.0-10.5 N HCG [id number] 18:18:00 Test Item Value Reference Range Interpretation Comments HCG SERUM (test code = HCG) MIU/ML 1-5 BASIC METABOLIC [id number] 18:08:00 Test Item Value Reference Range Interpretation [...] (test code = CA) mg/dl 8.0-10.5 HCG [id number] 18:08:00 Test Item Value Reference Range Interpretation Comments HCG SERUM (test code = HCG) MIU/ML 1-5 CBC W/AUTO [id number] 18:03:00 Test Item Value Reference Range Interpretation [...] 3uL 0.00-0.01 N NRBC#) - DUP AB/PEL/SC [id number] 17:43:00 [facility] : 2000 Sex: F FAX: Rohit Nails MD [place]: St: REG Name: LING MERCEDES [facility] : 2000 Age/S: 19/F [address] [facility] Unit #: [id number] Loc: [address] [place], [place]: [place] [address] Acct: [id number] Dis Date: Status: REG ER PHONE #: [phone] Exam Date: 10/21/2020 1723 FAX #: [phone] Reason: pelvic pain EXAMS: CPT CODE: [id number] DUP AB/PEL/SC COMP 76442 INDICATION: Pelvic Pain LOCATION:T18 COMPARISON: None available. [...] likely physiologic. Viable intr auterine is visualized. [place]-rump length measures 1.3 cm consistent with estimated [...] Signed Report (CONTINUED) FAX: Rohit Nails MD [place]: St: REG Name: LING MERCEDES [facility] : 2000 Age/S: 19/F [address] Unit #: [id number] Loc: [address] [place]: [place] [address] Acct: [id number] Dis Date: Status: REG ER PHONE #: [phone] Exam Date: 10/21/2020 1723 FAX #: [phone] Reason: pelvic pain EXAMS: CPT CODE: [id number] DUP AB/PEL/SC COMP 10383 <Continued> CC: Rohit Nails MD Technologist: TINO Spence Date/Time/By: 10/21/2020 (1743) : By: [email or web address] PAGE 2 Signed Report FAX: Rohit Nails MD [place]: St: REG Name: LING MERCEDES [facility] : 2000 Age/S: 19/F [address] Unit#: [id number] Loc: [address] [place], [place]: [place] [address] Acct: [id number] Dis Date: Status: REG ER PHONE #: [phone] Exam Date: 10/21/20201722 FAX #: [phone] Reason: pelvic pain EXAMS: CPT CODE: [id number] DUP AB/PEL/SC COMP 13053 <Continued> Orig Print D/T: S: 10/21/2020 (2914) PAGE 3 Signed Report- US PREG UT [id number] 17:43:00 [facility] : 2000 Sex: F FAX: Rohit Nails MD [place]: St: REG Name: LING MERCEDES [facility] : 2000 Age/S: 19/F [address] [facility] Unit #: [id number] Loc: [address] [place], [place]: [place] [address] Acct: [id number] Dis Date: Status: REG ER PHONE #: [phone] Exam Date: 10/21/20201722 FAX #: [phone] Reason: pelvic pain EXAMS: CPT CODE: [id number] US PREG UT TRANSVAGINAL 01862 INDICATION: Pelvic Pain LOCATION:T18 COMPARISON: None available. [...] likely physiologic. Viable intr auterine is visualized. [place]-rump length measures 1.3 cm consistent with estimated [...] Signed Report (CONTINUED) FAX: Rohit Nails MD [place]: EM St: REG Name: LING MERCEDES [facility] : 2000 Age/S: 19/F [address] [facility] Unit #: [id number] Loc: [address] [place], [place]: [place] [address] Acct: [id number] Dis Date: Status: REG ER PHONE #: [phone] Exam Date: 10/21/20201722 FAX #: [phone] Reason: pelvic pain EXAMS: CPT CODE: [id number] US PREG UT TRANSVAGINAL 27261 <Continued> CC: Rohit Nails MD Technologist: [id number] 1; TINO WADE Trnscrd Date/Time/By: 10/21/2020 (5191) : By: [email or web address] PAGE 2 Signed Report FAX: Rohit Nails MD [place]: St: REG Name: LING MERCEDES [facility] : 2000 Age/S: 19/F [address] [employer] Unit#: [id number] Loc: [address] [place], [place]: [place] [address] Acct: [id number] Dis Date: Status: REG ER PHONE #: [phone] Exam Date: 10/21/20201722 FAX #: [phone] Reason: pelvic pain EXAMS: CPT CODE: [id number] US PREG UT TRANSVAGINAL 37429 <Continued> Orig Print D/T: S: 10/21/2020 (4177) PAGE 3 Signed Report- US [id number] 17:43:00 [facility] : 2000 Sex: F FAX: Rohit Nails MD [place]: St: REG Name: LING MERCEDES [facility] : 2000 Age/S: 19/F [address] [facility] Unit #: [id number] Loc: [address] [place]: [place] [address] Acct: [id number] Dis Date: Status: REG ER PHONE #: [phone] Exam Date: 10/21/2020 1723 FAX #: [phone] Reason: Pelvic Pain EXAMS: CPT CODE: [id number] LTD 28407 INDICATION: Pelvic Pain LOCATION:T18 COMPARISON: None available. [...] likely physiologic. Viable intr auterine is visualized. [place]-rump length measures 1.3 cm consistent with estimated [...] Signed Report (CONTINUED) FAX: Rohit Nails MD [place]: St: REG Name: LING MERCEDES [facility] : 2000 Age/S: 19/F [address] [facility] Unit #: [id number] Loc: [address] [place], [place]: [place] [address] Acct: [id number] Dis Date: Status: REG ER PHONE #: [phone] Exam Date: 10/21/2020 1723 FAX #: [phone] Reason: Pelvic Pain EXAMS: CPT CODE: [id number] US LTD 95881 <Continued> CC: Rohit Nails MD Technologist: TINO WADE Trnscrd Date/Time/By: 10/21/2020 (1743) : By: [email or web address] PAGE 2 Signed Report FAX: Rohit Nails MD [place]: St: REG Name: LING MERCEDES [facility] : 2000 Age/S: 19/F [address] [email or web address] Unit#: [id number] Loc: [address] [place]: [place] [address] Acct: [id number] Dis Date: Status: REG ER PHONE #: [phone] Exam Date: 10/21/2020 1723 FAX #: [phone] Reason: Pelvic Pain EXAMS: CPT CODE: [id number] LTD 79765 <Continued> Orig Print D/T: S: 10/21/2020 (1746) PAGE 3 Signed ReportUrine [id number] 23:30:25 Test Item Value Reference Range Interpretation Comments Urine culture Mixed kyrie Specimen isolate (test <=10-3 col/cc Information ecimen code = 03390-2) Source: Freddie Peterson Site: [facility]- XR WRIST 3 + V [id number] 05:46:00 FAX: Gwyn Root DO [phone] [place]: St: REG Name: LING MERCEDES [facility] : 2000 Age/S: 18/F [address] [facility] Unit#: [id number] Loc: [address] [place]: [place] [address] Acct: [id number] Dis Date: Status: REG ER PHONE #: [phone] Exam Date: 09/11/2019 0546 FAX #: [phone] Reason: Wrist pain EXAMS: CPT CODE: [id number] XR WRIST 3 + V LT [address] EXAM: - XR WRIST 3 + V LT HISTORY: Wrist pain COMPARISON: None available time of interpretation. FINDINGS: Frontal, oblique, and lateral views of the left wrist are provided. No acute fracture or malalignment. No soft tissue findings are apparent. IMPRESSION: No acute fracture. at 0546 Reported and signed by: Audie Ravi M.D. CC: Gwyn Root DO Technologist: RT Pankaj(Senthil) Trnscrd Date/Time/By: 09/11/2019 (4212) : By: [email or web address] PAGE 1 Signed Report FAX: Annabel Root [phone] [place]: St: REG Name: LING MERCEDES [facility] : 2000 Age/S: 18/F [address] [facility] Unit #: [id number] Loc: [address] [place], [place]: [place] [address] Acct: [id number] Dis Date: Status: REG ER PHONE #: [phone] Exam Date: 09/11/2019 0546 FAX #: [phone] Reason: Wrist pain EXAMS: CPT CODE: [id number] XR WRIST 3 + V LT [address]755 <Continued> Orig Print D/T: S: 09/11/2019 (4421) PAGE 2 Signed Report- XR ANKLE 3 + V [id number] 16:36:00 FAX: Shawn Suh [phone] [place]: St: PRE Name: LING MERCEDES [facility] : 2000 Age/S: 18/F [address] [facility] Unit#: [id number] Loc: [address] Phys: Shawn [place] 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 LOCATION: 9. HISTORY: Fall, sprained ankle. COMPARISON: None. FINDINGS/ IMPRESSION: Three views of bilateral ankles demonstrates no soft tissue swelling over medial nor lateral malleolus. No radiographic evidence of acute osseous abnormality. Articular spaces are well-maintained. No radiopaque foreign body. at 1636 Reported and signed by: Barry Casarez M.D. 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
[2021-07-29 09:45] LABS: Urine Blood Negative (Negative); Urine Glucose Negative (Negative); Urine Protein 1+ (Negative); Urine Specific Gravity >=1.030 (1.005-1.030); Urine pH 5.5 (5.0-7.0)
--- NOTE | 2021-07-29 09:51 | ER ---
Nurse's Notes [facility] Name: Mateo Bates Age: 20 yrs Sex: Female : 2000 Arrival Date: 07/29/2021 Time: 08:57 Bed 9 Private MD: Diagnosis: Acute upper respiratory infection, unspecified Presentation: 07/29 09:05 Chief complaint: Patient states: dry cough and nausea that began 2-3 days ago, pt also aa5 reports chest pain only with cough and sore throat. Coronavirus screen: cough unrelated to allergies. Ebola Screen: No symptoms or risks identified at this time. Initial Sepsis Screen: Does the patient meet any 2 criteria? No. Patient's initial sepsis screen is negative. Does the patient have a suspected source of infection? No. Patient's initial sepsis screen is negative. Risk Assessment: Do you want to hurt yourself or someone else? Patient reports no desire to harm self or others. Onset of symptoms was July 2021. 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 - Social history:: Smoking status: Patient reports the use of cigarette tobacco products, denies chronic smoking, but will smoke occasionally. Screenin:57 Abuse screen: Denies threats or abuse. Denies injuries from another. Nutritional iw screening: No deficits noted. Tuberculosis screening: No symptoms or risk factors identified. Fall Risk None identified. Assessment: 09:57 General: Appears in no apparent distress. Behavior is calm, cooperative. Pain:. Neuro: iw Level of Consciousness is awake, alert, obeys commands, Oriented to person, place, time, situation, Moves all extremities. Full function. Respiratory: Reports cough that is Respiratory effort is even, unlabored, Respiratory pattern is regular, symmetrical. GI: Abdomen is flat. Derm: Skin is intact, is healthy with good turgor. Musculoskeletal: Range of motion: intact in all extremities. Vital Signs: 09:05 BP 130 / 93; Pulse 86; Resp 16 S; Temp 97.4(TE); Pulse Ox 100% on R/A; Weight 62.6 kg aa5 (R); Height 5 ft. 4 in. (162.56 cm) (R); Pain 0/10; 09:05 Body Mass Index 23.69 (62.60 kg, 162.56 cm) aa5 ED Course: 08:57 Patient arrived in ED. as 09:04 Lesa Mauricio PA is PHCP. en 09:04 Pascual Irwin MD is Attending Physician. en 09:05 Arm band placed on. aa5 09:07 Triage completed. aa5 09:31 Zoey Ruelas, RN is Primary Nurse. iw 09:50 Eduardo Funes MD is Referral Physician. en 09:58 Patient has correct armband on for positive identification. iw 09:58 No provider procedures requiring assistance completed. Patient did not have IV access iw during this emergency room visit. Administered Medications: No medications were administered Medication: 09:58 VIS not applicable for this client. iw Outcome: 09:51 Discharge ordered by . en 09:58 Discharged to home ambulatory. iw 09:58 Condition: good 09:58 Discharge instructions given to patient, Instructed on discharge instructions, follow up and referral plans. Demonstrated understanding of instructions, follow-up care, medications, Prescriptions given X 3. 09:58 Patient left the ED. iw Signatures: Helena Hwang as Zoey Ruelas, RN RN iw Suzanna Reyes RN RN aa5 Lesa Mauricio PA PA en
--- NOTE | 2021-07-29 09:51 | EDPHYS ---
Physician Documentation [facility] Name: Mateo Bates Age: 20 yrs Sex: Female : 2000 Arrival Date: 07/29/2021 Time: 08:57 Bed 9 Private MD: ED Physician Pascula Irwin HPI: 07/29 09:30 This 20 yrs old Black Female presents to ER via Ambulatory with complaints of Nausea, en Cough, Sore Throat, Chest Pain. 09:30 20-year-old female presents to the ED with cough, congestion and chest soreness from en coughing over the last 4 days. She also reports she had an abnormal period and may be . No fevers, chills, vomiting. No abdominal pain, cramping.. 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 - Social history:: Smoking status: Patient reports the use of cigarette tobacco products, denies chronic smoking, but will smoke occasionally. ROS: 09:30 Constitutional: Negative for fever, chills, and weight loss. en 09:30 Constitutional: Negative for body aches, chills, fatigue, fever, malaise. 09:30 ENT: Positive for Sore throat from cough, Negative for ear pain, sinus congestion. 09:30 Neck: Negative for pain with movement. 09:30 Respiratory: Positive for cough, pleurisy, Negative for dyspnea on exertion, orthopnea, shortness of breath, sputum production, wheezing. 09:30 Abdomen/GI: Positive for nausea, Negative for abdominal pain. 09:30 Back: 09:30 : Negative for urinary symptoms, vaginal bleeding. 09:30 All other systems are negative. Exam: 09:30 Constitutional: This is a well developed, well nourished patient who is awake, alert, en and in no acute distress. 09:30 Constitutional: The patient appears in no acute distress, alert, awake, comfortable. 09:30 Eyes: Conjunctiva: exudate, injected. 09:30 ENT: External ear(s): are unremarkable, Ear canal(s): are normal, TM's: are normal, no dullness, no erythema, no fluid levels, Nose: is normal, no drainage, Mouth: Lips: normal, moist, Oral mucosa: pink and intact, moist, Posterior pharynx: Airway: patent. 09:30 Neck: ROM/movement: Meningeal signs: are not present. 09:30 Cardiovascular: Rate: normal, Rhythm: regular, Pulses: no pulse deficits are appreciated, Heart sounds: normal, no murmur, no rub, no gallop. 09:30 Respiratory: the patient does not display signs of respiratory distress, Respirations: normal, Breath sounds: are clear throughout, no rales, rhonchi, no stridor, no wheezing. 09:30 Abdomen/GI: Inspection: abdomen appears normal. 09:30 Skin: no rash present. 09:30 Neuro: Orientation: appropriate for stated age, to person, place \T\ time. 09:30 Psych: Behavior/mood is pleasant, cooperative, Affect is calm. Vital Signs: 09:05 BP 130 / 93; Pulse 86; Resp 16 S; Temp 97.4(TE); Pulse Ox 100% on R/A; Weight 62.6 kg aa5 (R); Height 5 ft. 4 in. (162.56 cm) (R); Pain 0/10; 09:05 Body Mass Index 23.69 (62.60 kg, 162.56 cm) aa5 MDM: 09:25 Patient medically screened. en 09:30 Differential diagnosis: Bronchitis, pneumonia, reactive airway disease, seasonal en allergies, URI. We will also check test. Data reviewed: vital signs, nurses notes, and as a result, I will. 09:50 Data reviewed: lab test result(s), UPT: negative. en 07/29 09:45 Order name: Urine Dipstick-Ancillary EDMS 07/29 09:46 Order name: Urine --Ancillary (enter results) eb 07/29 09:30 Order name: Urine Test (obtain specimen); Complete Time: 09:49 en Administered Medications: No medications were administered Disposition: :22 Co-signature as Attending Physician, Pascual Irwin MD I agree with the assessment and kdr plan of care. Disposition Summary: 06/12/22 09:51 Discharge Ordered Location: Home en Problem: new en Symptoms: are unchanged en Condition: Stable en Diagnosis - Acute upper respiratory infection, unspecified en Followup: en - With: Eduardo Funes MD - When: As needed - Reason: Discharge Instructions: - Discharge Summary Sheet en - Viral Respiratory Infection en Forms: - Medication Reconciliation Form en - Thank You Letter en - Antibiotic Education en - Prescription Opioid Use en Prescriptions: - ProAir HFA 90 mcg/actuation Inhalation HFA aerosol inhaler - inhale 2 puff by INHALATION route 6 times per day; 1 Inhaler; Refills: 0, en Product Selection Permitted - Tessalon Perles 100 mg Oral Capsule - take 1 capsule by ORAL route every 8 hours As needed; 15 capsule; Refills: 0, en Product Selection Permitted - Prednisone 20 mg Oral Tablet - take 2 tablets by ORAL route once daily for 5 days; 10 tablet; Refills: 0, en Product Selection Permitted Signatures: Dispatcher [employer] EDPascual Horner MD MD kdr Calderon, Audri RN RN aa5 Lesa Mauricio PA PA en
[2021-07-29 10:27] VITALS: BP 130/93; TEMP 97.4; O2SAT 100
== END 2021-07-29 09:58 | disposition home or self-care (01) ==
LOC: ER 08:55
DX: J06.9 Acute upper respiratory infection, unspecified (principal); R11.0 Nausea; F17.210 Nicotine dependence, cigarettes, uncomplicated
CPT/HCPCS: 81003; 81025; 99282